=== PATIENT | female | born 1970 | race Caucasian/White ===

== ENCOUNTER 2020-01-30 08:55 | Inpatient (IN) | payer MEDICARE, MEDICAID ==
[~2020-01-30 08:55] MED LIST: Iopamidol-370 76% 500 ML 1 ML ONE
[2020-01-30] MEDS ORDERED: Morphine 4 MG/ML VIAL ONE ×2 (09:26→12:17)
[2020-01-30] MEDS ORDERED: Ondansetron PF 4 MG/2 ML Vial ONE ×2 (09:27→12:17)
[2020-01-30 09:28] LABS: #Lymphocytes 0.7 thou/uL (1.20-3.40); #Monocytes 0.7 thou/uL (0.11-0.59); #Neutrophils 11.7 thou/uL (1.40-6.50); %Basophils 0.2 % (0.0-1.0); %Eosinophils 0.2 % (0.0-10.0); %Lymphocytes 5.4 % (21.0-51.0); %Monocytes 5.6 % (0.0-10.0); %Neutrophils 88.5 % (42.0-75.0); Hemoglobin 11.6 g/dL (12.0-16.0); Mean Corpuscular HGB CONC 32.1 g/dL (32.0-36.0); Mean Corpuscular Hemoglobin 26.6 pg (27.0-31.0); Mean Corpuscular Volume 82.8 fL (78.0-98.0); Mean Platelet Volume 6.9 fL (7.4-10.4); Platelet Count 352 thou/uL (130-400); RBC Distribution Width 17.1 % (11.5-14.5); Red Blood Cell (RBC) Count 4.34 mill/uL (4.20-5.40); White Blood Cell (WBC) Count 13.2 thou/uL (4.8-10.8)
[2020-01-30 09:51] LABS: ALT (SGPT) 15 U/L (8-55); AST (SGOT) 17 U/L (5-34); Albumin 3.8 g/dL (3.5-5.0); Alkaline Phosphatase 122 U/L (40-110); Anion Gap 16 mmol/L (10-20); BUN (Urea Nitrogen) 5 mg/dL (7.0-18.7); Bilirubin, Total 0.3 mg/dL (0.2-1.2); Calc. Creatinine Clearance 0 mL/min (70-130); Calcium 9.2 mg/dL (7.8-10.44); Carbon Dioxide 23 mmol/L (22-29); Chloride 98 mmol/L (98-107); Estimated GFR-MDRD Greater than 90; Glucose 154 mg/dL (70-105); Lipase 123 U/L (8-78); Potassium 4.2 mmol/L (3.5-5.1); Protein, Total 6.8 g/dL (6.0-8.3); Sodium 133 mmol/L (136-145)
--- NOTE | 2020-01-30 10:18 | CT ---
EXAM: CT ABDOMEN AND PELVIS HISTORY: Pancreatitis, x6 months. Worsening pain. COMPARISON: 10/23/2019. Procedure: Multiple contiguous axial images were obtained and a CT of the abdomen and pelvis with IV contrast. C oronal reformats were performed. FINDINGS: Lower Chest: Interval development of a left-sided pleural effusion. There are patchy opacities in the left lower lobe suggesting possible areas of reactive change including fibrosis and scarring. Superimposed left lower lobe infiltrate cannot be entirely excluded. There are also patchy groundglas s opacities and septal thickening in the right lower lobe. Vessels: Normal caliber aorta. No periaortic fat stranding. Heart: Normal heart size. No significant pericardial fluid. Abdomen: Portal vein:Patent. Gallbladder: No calcified gallstones. Normal caliber wall. Liver: within normal limits. Pancreas: Emanating from the tail the pancreas is a complex fluid collection with septation, measurin g 5.9 x 5.4 cm with an attenuation coefficient of 15 Hounsfield units. Fluid tracks in a cephalad direction, and is posterior to the spleen. Fluid terminates underneath the left hemidiaphragm. The cr aniocaudal dimension of this fluid collection is 8.2 cm. Previously, this would collection was reported to be 12 x 10 x 8 cm. The craniocaudal dimension appears to have decreased in size. However, the anterior posterior dimension at the head and tail the pancreas appears to be more prominent. Previous noted debris fluid level is once again demonstrated. Spleen: Redemonstration of multiple linear defects involving the spleen. These defects were noted on the previous examination. There appears to be complex perisplenic fluid. Adrenals: within normal limits. Kidneys: Symmetric enhancement. No obstructive uropathy. Peritoneum: There is evidence of fluid in the left paracolic gutter and in the left upper quadrant. T here is stranding of the left upper quadrant mesentery suggesting edema. There is stranding of the mesentery along the gastric cardia/greater curvature of the stomach. There is asymmetric thickening o f the left hemidiaphragm. No evidence of extraluminal air. No evidence of a fluid collection containing air attenuation to suggest intracranial abscess. Bowel: Reactive/inflammatory changes of the stomach as mentioned above. No evidence of a small bowel obstruction. Normal ileocecal junction. Normal caliber appendix. Colon is decompressed. Diverticulosis. No evidence of diverticulitis. Mesentery and Retroperitoneum: There are enlarged gastrohepatic lymph nodes. [address] lymph nod e measures 0.8 x 1.2 cm Abdominal Wall: within normal limits. Pelvis: Reproductive Organs: Reproductive organs are unremarkable. Pelvis: No mass, lymphadenopathy, or free air. There is a small amount of free fluid in the pelvis. Bladder: within normal limits. Bones: There is a chronic compression fracture at L1. 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 Internal fixation hardware in the right hip is noted. IMPRESSION: 1. Findings compatible with evolutionary changes from pancreatitis. There is evidence of a pseudocyst adjacent to the tail of the pancreas. Pseudocyst has increased in size. There are inflammatory changes involving the left upper quadrant mesentery. There is stranding of the mesentery along with i nflammatory change along the greater curvature of the stomach. There is evidence of cortical scarring and infarcts along the spleen. There is evidence of a perisplenic subcapsular fluid collecti on which has slightly decreased in size. 2. Reactive changes involving the left and right lung base secondary to pancreatitis. 3. Consider GI consultation. Transcribed Date/Time: 01/30/2020 10:36 AM
[2020-01-30] MEDS ORDERED: Pantoprazole 40 MG VIAL ONE (12:17)
[2020-01-30] MEDS ORDERED: Ondansetron ODT 4 MG TAB PO PRN (12:34)
[2020-01-30] MEDS ORDERED: Ondansetron PF 4 MG/2 ML Vial IVP PRN (12:34)
[2020-01-30] MEDS ORDERED: HYDROcodone/Acetaminophen 7.5/325 mg Tablet PO PRN (12:34)
[2020-01-30] MEDS ORDERED: Sodium Chloride 0.9% 1,000 ML IV SCH (12:45)
[2020-01-30] MEDS ORDERED: Morphine 4 MG/ML VIAL SLOW IVP PRN (12:49)
--- NOTE | 2020-01-30 12:59 | PDOC.HHP ---
Hospitalist HPI - History of Present Illness History of Present Illness: ADMISSION DATE: 01/30/2020 TIME OF ASSESSMENT: 1215 PRIMARY CARE PHYSICIAN: Anthony CHIEF COMPLAINT: Abdominal pain and shoulder pain HPI: The patient is a 49-year-old female with past medical history significant for pancreatitis, asthma, GERD, hypothyroidism. She presents to the ER today for increased abdominal pain and she feels that her spleen is also infected. She has suffered with pancreatitis for the past 6 months and had multiple hospitalizations. She has been treating the pain at home with Tylenol #3 but this is no longer helping. She still is an everyday drinker of at least 8 beers. She describes this as a constant pain and feels that her pancreas is going to "burst out her side". Nothing is help relieve the pain at home, she also endorses nausea and vomiting. Denies contact with sick persons, diarrhea, chest pain, fever. ED COURSE: Today in the ER she had a abdomen CT completed along with lab work. She was administered Protonix 40 mg IV, morphine 8 mg total IV, Zofran 8 mg total IV, 1 L normal saline, and patient is a 79-year-old female past medical history significant for pancreatitis. She presents to the ER today 1 L lactated Ringer's. PAST MEDICAL HISTORY: Asthma, pancreatitis, GERD, hypothyroidism, elevated LFT, hepatitis Jesika active, bipolar, PTSD PAST SURGICAL HISTORY: Cholecystectomy, hernia repair SOCIAL HISTORY: Patient has lived with her parents since this past May when her . She drinks at least 8 beers a night, currently is a cigarette smoker and denies illicit drug use. FAMILY HISTORY: Positive for diabetes, CAD, hypertension. ALLERGIES: Penicillinrash CURRENT MEDICATIONS: Albuterol 2 puffs every 4 hours Tylenol 3 2 tablets every 4 hours Aspirin 81 mg Bupropion 30 mg Buspirone 10 mg 3 times a day Clonazepam 8 mg once a day Estradiol oral once a day Fluoxetine 20 mg once a day Gabapentin 300 mg 3 times a day Levothyroxine 75 mcg once a day Meloxicam 15 mg once a day Mirtazapine 7.5 mg at night Pantoprazole 40 mg twice a day Quetiapine 100 mg at night Risperdal 1 mg once a day Ropinirole 1 mg once a day Sucralfate 1 g 3 times a day Trazodone 100 mg once a day at bedtime Trulance 3 mg once a day Ambien 10 mg at night Hospitalist ROS - Review of Systems Gastrointestinal: reports: nausea, vomiting, abdominal pain Musculoskeletal: reports: neck pain, shoulder pain All other systems reviewed; all pertinent +/- noted in HPI/Subj - Exam General Appearance: awake alert, ill appearing Eye: PERRL ENT: normocephalic atraumatic Neck: supple Heart: RRR, no murmur, no gallops, no rubs, normal peripheral pulses Respiratory: CTAB, no wheezes, no rales, no ronchi, normal chest expansion Gastrointestinal: soft, non-distended, normal bowel sounds, no palpable masses, tender to palpation, voluntary guarding Musculoskeletal: normal tone, no muscle wasting Psychiatric: A&O x 3, flat affect Hospitalist Results - Labs Result Diagrams: 01/30/20 09:21 01/30/20 09:21 Lab results: WBC 13.2 thou/uL (4.8-10.8) H 01/30/20 09:21 Hgb 11.6 g/dL (12.0-16.0) L 01/30/20 09:21 Hct 35.9 % (36.0-47.0) L 01/30/20 09:21 MCV 82.8 fL (78.0-98.0) 01/30/20 09:21 Plt Count 352 thou/uL (130-400) 01/30/20 09:21 Neutrophils % 88.5 % (42.0-75.0) H 01/30/20 09:21 Sodium 133 mmol/L (136-145) L 01/30/20 09:21 Potassium 4.2 mmol/L (3.5-5.1) 01/30/20 09:21 Chloride 98 mmol/L (98-107) 01/30/20 09:21 Carbon Dioxide 23 mmol/L (22-29) 01/30/20 09:21 BUN 5 mg/dL (7.0-18.7) L 01/30/20 09:21 Creatinine 0.68 mg/dL (0.6-1.1) 01/30/20 09:21 Glucose 154 mg/dL (70-105) H 01/30/20 09:21 Calcium 9.2 mg/dL (7.8-10.44) 01/30/20 09:21 Total Bilirubin 0.3 mg/dL (0.2-1.2) 01/30/20 09:21 AST 17 U/L (5-34) 01/30/20 09:21 ALT 15 U/L (8-55) 01/30/20 09:21 Alkaline Phosphatase 122 U/L (40-110) H 01/30/20 09:21 Troponin I Less than 0.010 ng/mL (< 0.028) 01/30/20 09:21 Serum Total Protein 6.8 g/dL (6.0-8.3) 01/30/20 09:21 Albumin 3.8 g/dL (3.5-5.0) 01/30/20 09:21 Lipase 123 U/L (8-78) H 01/30/20 09:21 - EKG Interpretation EKG: SR 94bpm - Radiology Interpretation CT scan - abdomen Status: report reviewed by me Additional Comment: Impression: 1. Findings compatible with evolutionary changes from pancreatitis. There is evidence of a pseudocystadjacent to the tail of the pancreas. Pseudocyst has increased in size. There are inflammatory changes involving the left upper quadrant mesentery. There is stranding of the mesentery along with inflammatory change along the greater curvature of the stomach. There is evidence of cortical scarring and infarcts along the spleen. There is evidence of a perisplenic subcapsular fluid collection which has slightly decreased in size. 2. Reactive changes involving the left and right lung base secondary to pancreatitis. 3. Consider GI consultation. Hospitalist H&P A/P - Problem (1) Chronic pancreatitis Code(s): K86.1 - OTHER CHRONIC PANCREATITIS Status: Chronic (2) Pancreatic pseudocyst Code(s): K86.3 - PSEUDOCYST OF PANCREAS Status: Acute (3) Alcohol use Code(s): Z72.89 - OTHER PROBLEMS RELATED TO LIFESTYLE Status: Chronic (4) Hyponatremia Code(s): E87.1 - HYPO-OSMOLALITY AND HYPONATREMIA Status: Acute (5) Anemia Code(s): D64.9 - ANEMIA, UNSPECIFIED Status: Acute (6) Back pain Code(s): M54.9 - DORSALGIA, UNSPECIFIED Status: Chronic (7) Bipolar disorder Code(s): F31.9 - BIPOLAR DISORDER, UNSPECIFIED Status: Chronic (8) PTSD (post-traumatic stress disorder) Code(s): F43.10 - POST-TRAUMATIC STRESS DISORDER, UNSPECIFIED Status: Chronic - Plan Plan: #Chronic pancreatitis with large pseudocyst Continue with IV fluid, aggressive hydration GI consultalready called in ER Pain management #Splenic infarctions IV fluids Defer to GI for recommendations #Anemia Monitor H&H Looked at old records from previous hospitalization, hemoglobin ranged from 8-13 We will monitor for signs of bleeding #Hyponatremia Continuous IV fluids Recheck labs in a.m. #Back pain Pain management while here in the hospital Outpatient follow-up with neurosurgery as scheduled #Daily alcohol use ASE protocol in place Monitor for signs of withdrawal #Bipolar and PTSD Restart home medications once reconciled Surrogate decision-maker is her mother CODE STATUS: Full Patient has been discussed with Dr. Stout
[2020-01-30 13:31] LABS: Magnesium 1.8 mg/dL (1.6-2.6)
[2020-01-30 14:01] VITALS: BMI 23.9
[2020-01-30] MEDS: Sodium Chloride 0.9% 1,000 ML IV SCH ×2 (15:39→20:08)
[2020-01-30] MEDS: Multivitamins, Adult 10 ML, Folic Acid 1 MG, Thiamine HCl 100 MG in Dextrose 5 %-0.45 %... IV SCH (16:06)
[2020-01-30] MEDS: HYDROcodone/Acetaminophen 7.5/325 mg Tablet PO PRN ×2 (16:11→21:57)
--- NOTE | 2020-01-30 17:36 | CON ---
DATE OF CONSULTATION: 01/30/2020 REQUESTING PROVIDER: Jackie Lane NP. REASON FOR CONSULTATION: Pancreatitis with pseudocyst. HISTORY OF PRESENT ILLNESS: Jade Odell is a 49-year-old woman, a patient of my GI colleague, Dr. Lee Adams. She has a history significant for asthma, bipolar disorder, and hepatitis C. Back around 04/2019 in [place], she had her 1st episode of acute pancreatitis, this was evidently severe. She also had a gastric ulcer demonstrated on EGD at that time. She says that the pancreatitis was thought to be gallstone related and she underwent cholecystectomy. She was noted to have a pseudocyst at that time, that measured only 4 cm. She had resolution of those symptoms and established care with Dr. Adams here this summer. He performed EGD and colonoscopy on 10/10/2019. The EGD demonstrated complete healing of her ulcer, but showed a lot of extrinsic compression in the proximal stomach. The colonoscopy was a normal exam. CT imaging in October demonstrated that her pancreatic tail pseudocyst had enlarged with measurements of 8 x 10 x 12 cm given. Regardless, she was really not having any symptoms from this. Unfortunately, she does drink quite a bit of alcohol despite having been advised to stop by providers in the past. At this point, she says she is drinking at least 30 beers over the course of a week. To other provider, she has reported at least 8 beers per day. She was doing well until 4 days ago when she had the fairly acute onset of pain involving the entire upper abdomen and radiating to the left side of the back down into the left lower quadrant and actually up into the left shoulder and down the left arm. This has been constant, but exacerbated by any oral intake. She has associated nausea and nonbloody emesis. Her bowel movements have continued to be normal. She has been taking Tylenol No. 3 two tablets up to every 4 hours at home, but it was not enough for the level of pain. She presented here today and has been admitted for further evaluation and treatment. Labs demonstrate a mild leukocytosis with WBC 13.2, hemoglobin 11.6, alkaline phosphatase 122, but otherwise normal LFTs. Lipase only mildly elevated to 123, but a CT of the abdomen and pelvis shows changes consistent with recurrent acute pancreatitis. There is a left pleural effusion. She has a lot of left upper quadrant and perigastric mesenteric edema, some chronic splenic infarcts. No evidence of abscess. Her pancreatic tail fluid collection measures 8.2 x 5.9 x 5.4 cm, which is an increase in size in the anterior/posterior dimension, with debris. She is currently resting comfortably, responding well to morphine. IV fluids have been ordered at 150 mL/h, but are not currently running. REVIEW OF SYSTEMS: Full review of systems including constitutional; head, eyes, ears, nose, and throat; GI; ; cardiovascular; respiratory; musculoskeletal; neurologic systems is negative except as noted in the HPI. PAST MEDICAL HISTORY: 1. Hernia repair. 2. Cholecystectomy in spring. 3. Pancreatitis in 04/2019. 4. Gastric ulcer in 04/2019, resolved as of most recent EGD in 09/2019. 5. Asthma. 6. Hypothyroidism. 7. Hepatitis C. 8. PTSD. 9. Bipolar disorder. 10. Alcohol abuse. 11. Tobacco abuse, ongoing. ALLERGIES: PENICILLIN. OUTPATIENT MEDICATIONS: 1. Aspirin 81 mg daily. 2. Albuterol two puffs every 4 hours. 3. Tylenol No. 3 two tablets every 4 hours. 4. Bupropion. 5. Buspirone. 6. Clonazepam 8 mg daily. 7. Estradiol. 8. Fluoxetine. 9. Gabapentin 300 mg 3 times daily. 10. Levothyroxine. 11. Meloxicam 15 mg daily. 12. Mirtazapine. 13. Pantoprazole 40 mg twice daily. 14. Quetiapine. 15. Risperdal. 16. Ropinirole. 17. Sucralfate 1 g 3 times daily. 18. Trazodone 100 mg at bedtime. 19. Trulance 3 mg daily. 20. Ambien 10 mg at night. INPATIENT MEDICATIONS: 1. Morphine 4 mg q.4 h. IV p.r.n. 2. Normal saline 150 mL/h. 3. Zofran p.r.n. FAMILY HISTORY: Noncontributory. SOCIAL HISTORY: She does smoke. She has heavy daily alcohol use, having anywhere from 6 to 8 or more beers per day on average. No drug use. PHYSICAL EXAMINATION: VITAL SIGNS: Temperature 97.6, pulse 94, blood pressure 128/72, and 96% oxygen saturation on 2 L nasal cannula. GENERAL: A 49-year-old woman, lying in bed comfortably, somnolent, but easily arousable and able to answer detailed questions, in no acute distress. SKIN: No jaundice. No rash visible or palpable. EYES: No scleral icterus. Extraocular movements intact. ENT: Mucous membranes moist. No oral lesions. LYMPHATICS: No submandibular or supraclavicular lymphadenopathy. THYROID: Nontender to palpation. HEART: Regular rate and rhythm. LUNGS: Bibasilar crackles, but no wheezing. No respiratory distress. ABDOMEN: Nondistended. Bowel sounds are hypoactive, but present. Soft, tender to palpation throughout the upper abdomen, but no guarding or rebound tenderness. EXTREMITIES: No peripheral edema. VESSELS: Radial pulses 2+ bilaterally. NEUROLOGIC: Cranial nerves 2 through 12 intact bilaterally. No focal deficits. LABORATORY STUDIES: WBC 13.2, hemoglobin 11.6, and platelets 352. Sodium 133, potassium 4.2, BUN 5, creatinine 0.68, glucose 154. Troponin negative. Lipase of 123, total bilirubin 0.3, alkaline phosphatase 122, AST 17, ALT 15, and albumin 3.8. COVID PCR is pending. Urinalysis is pending. IMAGING STUDIES: CT of the abdomen and pelvis demonstrates patchy bibasilar lower lung opacities, left pleural effusion. There are chronic splenic infarcts and chronic subcapsular splenic fluid collection, which has decreased in size. There is an 8.2 x 5.9 x 5.4 cm complex fluid collection, which is septated at the pancreatic tail, increased in size in the anterior/posterior dimension since last exam, with layering debris. There is left upper quadrant and perigastric mesenteric edema, but no evidence of abscess. ASSESSMENT AND PLAN: 1. [id number] pancreatitis. Note, her lipase is elevated only to 123, but she has characteristic active inflammatory changes on the CT scan. This pseudocyst is more chronic and the symptoms are more acute over the past 4 to 5 days, so my impression is that the symptoms represent acute recurrent pancreatitis. Lab parameters are favorable including hematocrit, BUN, and creatinine. Recommend continuing with n.p.o. status and pain control for now. Agree with IV fluids at 150 mL/h for at least the next day, this is ordered, but not currently running. 2. Alcohol abuse, ongoing. I had a long discussion with the patient that she really needs to completely stop drinking all alcohol, as this puts her at risk for recurrent episodes of pancreatitis and worsening complications such as enlargement of the pseudocyst. Monitor for alcohol withdrawal. 3. Pancreatic pseudocyst at the pancreatic tail, complex and septated. This is a possible contributor to her pain, though I suspect most of the acute pain is secondary to the pancreatitis itself. It is certainly not significantly decreased in size over the past 3 months, has certainly grown since 1st visualized in April. Evidently, she had endoscopic ultrasound in [place] on initial presentation, which showed fluid collection was only 4 cm. The patient may eventually need referral for repeat endoscopic ultrasound with the drainage of the pseudocyst once she is over this acute episode. Thank you for the consultation. GI can follow along. Please call anytime with questions or concerns. Job ID: [id number]
[2020-01-30 22:38] LABS: Bacteria/HPF None Seen HPF (None Seen); Bilirubin Negative (Negative); Blood, Urine Negative (Negative); Clarity Clear (Clear); Glucose, Urine (Dipstick) Normal (Negative); Ketone, Urine Negative (Negative); Leukocyte Negative Leu/uL (Negative); Nitrite Negative (Negative); Protein, Urine (Dipstick) Negative (Neg-Trace); RBC/HPF 0-3 HPF (0-3); Specific Gravity, Urine 1.037 (1.002-1.036); Squamous Epithelial 0-3 HPF (0-3); Urobilinogen Normal mg/dL (Less than 2); WBC/HPF 0-3 HPF (0-3)
[2020-01-30] MEDS ORDERED: Albuterol 200 PUFF (6.7GM INHALER) INH PRN (23:08)
[2020-01-31 00:50] LABS: SARS-CoV-2 MS2 Positive; SARS-CoV-2 N Gene Negative; SARS-CoV-2 S Gene Negative; SARS-CoV-2 by NAA Not Detected (NotDetected); SARS-CoV-2 orf1ab Negative
[2020-01-31] MEDS: HYDROcodone/Acetaminophen 7.5/325 mg Tablet PO PRN ×3 (02:42→20:30)
[2020-01-31] MEDS: Sodium Chloride 0.9% 1,000 ML IV SCH ×3 (03:44→15:50)
[2020-01-31] MEDS: Levothyroxine Sodium 75 MCG TAB PO SCH (05:33)
[2020-01-31 05:57] LABS: #Eosinphils 0.1 thou/uL (0.0-0.7); #Lymphocytes 1.1 thou/uL (1.20-3.40); #Monocytes 1.4 thou/uL (0.11-0.59); #Neutrophils 12.1 thou/uL (1.40-6.50); %Basophils 0.1 % (0.0-1.0); %Eosinophils 0.8 % (0.0-10.0); %Lymphocytes 7.2 % (21.0-51.0); %Monocytes 9.6 % (0.0-10.0); %Neutrophils 82.3 % (42.0-75.0); Hemoglobin 9.4 g/dL (12.0-16.0); Mean Corpuscular HGB CONC 31.7 g/dL (32.0-36.0); Mean Corpuscular Hemoglobin 26.9 pg (27.0-31.0); Mean Corpuscular Volume 84.6 fL (78.0-98.0); Mean Platelet Volume 6.9 fL (7.4-10.4); Platelet Count 356 thou/uL (130-400); RBC Distribution Width 16.7 % (11.5-14.5); Red Blood Cell (RBC) Count 3.49 mill/uL (4.20-5.40); White Blood Cell (WBC) Count 14.7 thou/uL (4.8-10.8)
[2020-01-31 06:23] LABS: Anion Gap 10 mmol/L (10-20); BUN (Urea Nitrogen) 5 mg/dL (7.0-18.7); Calc. Creatinine Clearance 107 mL/min (70-130); Calcium 7.8 mg/dL (7.8-10.44); Carbon Dioxide 24 mmol/L (22-29); Chloride 102 mmol/L (98-107); Cholesterol 81 mg/dl (< 200 Desired); Estimated GFR-MDRD Greater than 90; Glucose 94 mg/dL (70-105); HDL Cholesterol 40 mg/dL (>60 Neg Risk); LDL Cholesterol, Calculated 31 mg/dL; Potassium 3.8 mmol/L (3.5-5.1); Sodium 132 mmol/L (136-145); Triglycerides 49 mg/dL (Less than 150)
--- NOTE | 2020-01-31 13:30 | PDOC.HOSPP ---
- Subjective Encounter Date: 01/31/20 Encounter Time: 09:30 Subjective: c/o abd pain and sob spo2 is >96% on room air now - Objective Vital Signs & Weight: Vital Signs (12 hours) Temp Pulse Resp BP Pulse Ox 01/31/20 08:00 98 01/31/20 07:10 98.8 F 100 16 94/65 98 01/31/20 03:56 98.8 F 105 H 18 115/81 97 Weight Weight 131 lb Result Diagrams: 01/31/20 05:26 01/31/20 05:26 Hospitalist ROS - Medication Medications: Active Medications Generic Name Dose Route Start Last Admin Trade Name Freq PRN Reason Stop Dose Admin Hydrocodone Bitart/Acetaminophen 2 tab 01/30/20 12:34 01/31/20 10:34 Hydrocodone/Acetaminophen 7.5/325 Mg Tablet PO 2 tab Q4H PRN Administration Severe Pain (7-10) Multivitamins 10 ml/ Folic 1,011.2 mls @ 75 mls/hr 01/30/20 15:00 01/30/20 16:06 Acid 1 mg/ Thiamine HCl 100 mg IV 1,011.2 mls / Dextrose/Sodium Chloride Q24HR CHANDANA Administration Sodium Chloride 1,000 mls @ 150 mls/hr 01/30/20 13:21 01/31/20 08:32 Normal Saline 0.9% IV 1,000 mls .[id number] CHANDANA Administration Levothyroxine Sodium 75 mcg 01/31/20 06:00 01/31/20 05:33 Levothyroxine Sodium 75 Mcg Tab PO 75 mcg 0600 CHANDANA Administration Morphine Sulfate 4 mg 01/30/20 12:49 01/30/20 20:11 Morphine 4 Mg/Ml Vial SLOW IVP 4 mg Q4H PRN Administration Severe Pain (7-10) - Exam General Appearance: awake alert Eye: PERRL, anicteric sclera ENT: no oropharyngeal lesions, moist mucosa Neck: supple, no JVD Heart: RRR, no murmur Respiratory: no wheezes, no rales, rhonchi Gastrointestinal: soft, non-distended, normal bowel sounds, no guarding, no rigidity, tender to palpation Extremities: no cyanosis, no edema Neurological: cranial nerve grossly intact, no focal deficits Psychiatric: A&O x 3 Hosp A/P (1) Acute on chronic pancreatitis Code(s): K85.90 - ACUTE PANCREATITIS WITHOUT NECROSIS OR INFECTION, UNSP; K86.1 - OTHER CHRONIC PANCREATITIS Status: Acute (2) Anemia Code(s): D64.9 - ANEMIA, UNSPECIFIED Status: Chronic Qualifiers: Anemia type: unspecified type Qualified Code(s): D64.9 - Anemia, unspecified (3) Hyponatremia Code(s): E87.1 - HYPO-OSMOLALITY AND HYPONATREMIA Status: Acute (4) Pancreatic pseudocyst Code(s): K86.3 - PSEUDOCYST OF PANCREAS Status: Chronic (5) Alcohol use Code(s): Z72.89 - OTHER PROBLEMS RELATED TO LIFESTYLE Status: Chronic (6) Back pain Code(s): M54.9 - DORSALGIA, UNSPECIFIED Status: Chronic Qualifiers: Back pain location: low back pain Chronicity: chronic Back pain laterality: bilateral Sciatica presence: without sciatica Qualified Code(s): M54.5 - Low back pain; G89.29 - Other chronic pain (7) Bipolar disorder Code(s): F31.9 - BIPOLAR DISORDER, UNSPECIFIED Status: Chronic Qualifiers: Active/Remission status: remission status unspecified Qualified Code(s): F31.9 - Bipolar disorder, unspecified (8) Chronic pancreatitis Code(s): K86.1 - OTHER CHRONIC PANCREATITIS Status: Chronic (9) PTSD (post-traumatic stress disorder) Code(s): F43.10 - POST-TRAUMATIC STRESS DISORDER, UNSPECIFIED Status: Chronic - Plan is on aggressive iv fluid hydration, morphine prn home meds for mood disorder, staff to confirm home meds again with patient and her pharmacy has 8x6x5 cms pseudocyst on CT lipase 123, trig 49, prior cholecystectomy ongoing alc usage h/o Hep C, not sure if she got treated wbc 14k, h/h 12/10 watch for resp depression with morphine and her home meds (may hold trazadone if needed) hemostable
[2020-01-31] MEDS ORDERED: FLU VACC QS2020-21(6MOS UP)/PF 60 MCG/0.5 ML SYRINGE IM ONE (14:30)
[2020-01-31] MEDS: Multivitamins, Adult 10 ML, Folic Acid 1 MG, Thiamine HCl 100 MG in Dextrose 5 %-0.45 %... IV SCH (14:33)
--- NOTE | 2020-01-31 16:04 | PRG ---
DATE OF SERVICE: 01/31/2020 SUBJECTIVE: Ms. Odell has had improvement in her abdominal pain. She has had some mild shortness of breath. OBJECTIVE: VITAL SIGNS: Temperature 99.7, pulse 113, blood pressure 111/73. GENERAL: She is in no acute distress. Alert and oriented x3. EYES: No scleral icterus. LUNGS: Clear to auscultation bilaterally. HEART: Regular rate and rhythm without murmur. ABDOMEN: Soft. Mild tenderness in the epigastric region without guarding. Bowel sounds are present. EXTREMITIES: No lower extremity edema. LABORATORY DATA: Creatinine 0.59. Lipase is 123 yesterday. White blood cell count 14.7; hemoglobin is 9.4, down from 11.6 after rehydration; platelets 356. IMPRESSION: 1. Acute on chronic alcoholic pancreatitis. She started drinking again prior to admission and is encouraged to completely maintain abstinence after this. 2. Pancreatic pseudocyst. This is slowly enlarged over the last few months, but it appears to be more of a chronic issue as her acute pain is likely secondary to acute flare of the pancreatitis. RECOMMENDATIONS: 1. Her pain is doing better. We can try to advance her diet today. If she tolerates that well, then she can advance to a low-fat diet. 2. Alcohol abstinence. Job ID: [id number]
[2020-02-01] MEDS: HYDROcodone/Acetaminophen 7.5/325 mg Tablet PO PRN ×5 (00:25→20:06)
[2020-02-01] MEDS: Sodium Chloride 0.9% 1,000 ML IV SCH ×5 (00:27→16:33)
[2020-02-01] MEDS: Levothyroxine Sodium 75 MCG TAB PO SCH (05:19)
[2020-02-01 07:51] LABS: Hemoglobin 7.9 g/dL (12.0-16.0); Mean Corpuscular HGB CONC 29.9 g/dL (32.0-36.0); Mean Corpuscular Hemoglobin 25.2 pg (27.0-31.0); Mean Corpuscular Volume 84.2 fL (78.0-98.0); Mean Platelet Volume 6.6 fL (7.4-10.4); Platelet Count 421 thou/uL (130-400); RBC Distribution Width 16.4 % (11.5-14.5); Red Blood Cell (RBC) Count 3.13 mill/uL (4.20-5.40); White Blood Cell (WBC) Count 12.6 thou/uL (4.8-10.8)
[2020-02-01 07:52] LABS: #Eosinphils 0.1 thou/uL (0.0-0.7); #Lymphocytes 1.3 thou/uL (1.20-3.40); #Monocytes 1.1 thou/uL (0.11-0.59); #Neutrophils 10.1 thou/uL (1.40-6.50); %Basophils 0.1 % (0.0-1.0); %Eosinophils 0.9 % (0.0-10.0)
[2020-02-01 08:02] LABS: Anion Gap 11 mmol/L (10-20); BUN (Urea Nitrogen) 4 mg/dL (7.0-18.7); Calc. Creatinine Clearance 113 mL/min (70-130); Calcium 7.5 mg/dL (7.8-10.44); Carbon Dioxide 21 mmol/L (22-29); Chloride 106 mmol/L (98-107); Estimated GFR-MDRD Greater than 90; Glucose 87 mg/dL (70-105); Potassium 3.4 mmol/L (3.5-5.1); Sodium 135 mmol/L (136-145)
[2020-02-01 08:25] LABS: MDiff Complete? YES; Platelet Morphology Comment Appears Increased; Polychromasia SLIGHT = 2-3 cells (100X) (0-2/hpf)
[2020-02-01] MEDS: risperiDONE 1 MG TAB PO SCH (09:00)
[2020-02-01] MEDS: Bupropion 150 MG XL TAB PO SCH (09:00)
[2020-02-01] MEDS: FLUoxetine HCl 20 MG CAP PO SCH (09:00)
[2020-02-01] MEDS: Folic Acid 1 MG TAB PO SCH (09:00)
--- NOTE | 2020-02-01 14:12 | PDOC.HOSPP ---
- Subjective Encounter Date: 02/01/20 Encounter Time: 08:45 Subjective: still c/o abd pain but its better now is awaiting her liq breakfast tray no nausea - Objective Vital Signs & Weight: Vital Signs (12 hours) Temp Pulse Resp BP Pulse Ox 02/01/20 13:04 91 18 97 02/01/20 11:00 98.2 F 96 16 90/59 L 94 L 02/01/20 07:08 98.2 F 93 16 94/66 94 L 02/01/20 06:57 92 L 02/01/20 06:55 98 16 93 L 02/01/20 04:10 103 H 18 94/63 92 L Weight Weight 131 lb Result Diagrams: 02/01/20 07:22 02/01/20 07:22 Hospitalist ROS - Medication Medications: Active Medications Generic Name Dose Route Start Last Admin Trade Name Freq PRN Reason Stop Dose Admin Hydrocodone Bitart/Acetaminophen 2 tab 01/30/20 12:34 02/01/20 09:00 Hydrocodone/Acetaminophen 7.5/325 Mg Tablet PO 2 tab Q4H PRN Administration Severe Pain (7-10) Albuterol/Ipratropium 3 ml 01/31/20 19:00 02/01/20 13:04 Ipratropium/Albuterol Sulfate 3 Ml Neb NEB 3 ml [id number] CHANDANA Administration Bupropion HCl 300 mg 02/01/20 09:00 02/01/20 09:00 Bupropion 150 Mg Xl Tab PO 300 mg DAILY CHANDANA Administration Fluoxetine HCl 20 mg 02/01/20 09:00 02/01/20 09:00 Fluoxetine Hcl 20 Mg Cap PO 20 mg DAILY CHANDANA Administration Folic Acid 1 mg 02/01/20 09:00 02/01/20 09:00 Folic Acid 1 Mg Tab PO 1 mg DAILY CHANDANA Administration Multivitamins 10 ml/ Folic 1,011.2 mls @ 75 mls/hr 01/30/20 15:00 01/31/20 14:33 Acid 1 mg/ Thiamine HCl 100 mg IV 1,011.2 mls / Dextrose/Sodium Chloride Q24HR CHANDANA Administration Sodium Chloride 1,000 mls @ 150 mls/hr 01/30/20 13:21 02/01/20 11:36 Normal Saline 0.9% IV Not Given .[id number] CHANDANA Levothyroxine Sodium 75 mcg 01/31/20 06:00 02/01/20 05:19 Levothyroxine Sodium 75 Mcg Tab PO 75 mcg 0600 CHANDANA Administration Morphine Sulfate 4 mg 01/30/20 12:49 01/30/20 20:11 Morphine 4 Mg/Ml Vial SLOW IVP 4 mg Q4H PRN Administration Severe Pain (7-10) Pantoprazole Sodium 40 mg 01/31/20 21:00 02/01/20 09:00 Pantoprazole 40 Mg Tab PO 40 mg BID CHANDANA Administration Quetiapine Fumarate 200 mg 01/31/20 21:00 01/31/20 20:30 Quetiapine Fumarate 200 Mg Tab PO 200 mg HS CHANDANA Administration Risperidone 1 mg 02/01/20 09:00 02/01/20 09:00 Risperidone 1 Mg Tab PO 1 mg DAILY CHANDANA Administration - Exam General Appearance: awake alert Eye: PERRL, anicteric sclera ENT: no oropharyngeal lesions, moist mucosa Neck: supple, no JVD Heart: RRR, no murmur Respiratory: no wheezes, no rales Gastrointestinal: soft, non-distended, normal bowel sounds, no guarding, no rigidity Extremities: no cyanosis, no edema Neurological: cranial nerve grossly intact, no focal deficits Psychiatric: A&O x 3 Hosp A/P (1) Acute on chronic pancreatitis Code(s): K85.90 - ACUTE PANCREATITIS WITHOUT NECROSIS OR INFECTION, UNSP; K86.1 - OTHER CHRONIC PANCREATITIS Status: Acute (2) Anemia Code(s): D64.9 - ANEMIA, UNSPECIFIED Status: Chronic Qualifiers: Anemia type: unspecified type Qualified Code(s): D64.9 - Anemia, unspecified (3) Hyponatremia Code(s): E87.1 - HYPO-OSMOLALITY AND HYPONATREMIA Status: Acute (4) Pancreatic pseudocyst Code(s): K86.3 - PSEUDOCYST OF PANCREAS Status: Chronic (5) Alcohol use Code(s): Z72.89 - OTHER PROBLEMS RELATED TO LIFESTYLE Status: Chronic (6) Back pain Code(s): M54.9 - DORSALGIA, UNSPECIFIED Status: Chronic Qualifiers: Back pain location: low back pain Chronicity: chronic Back pain laterality: bilateral Sciatica presence: without sciatica Qualified Code(s): M54.5 - Low back pain; G89.29 - Other chronic pain (7) Bipolar disorder Code(s): F31.9 - BIPOLAR DISORDER, UNSPECIFIED Status: Chronic Qualifiers: Active/Remission status: remission status unspecified Qualified Code(s): F31.9 - Bipolar disorder, unspecified (8) Chronic pancreatitis Code(s): K86.1 - OTHER CHRONIC PANCREATITIS Status: Chronic (9) PTSD (post-traumatic stress disorder) Code(s): F43.10 - POST-TRAUMATIC STRESS DISORDER, UNSPECIFIED Status: Chronic - Plan is on aggressive iv fluid hydration, morphine prn, liq diet, to advance to solid fat free diet in am if stable home meds for mood disorder, staff to confirm home meds again with patient and her pharmacy has 8x6x5 cms pseudocyst on CT lipase 123, trig 49, prior cholecystectomy ongoing alc usage h/o Hep C, not sure if she got treated low h/h due to dilution from hydration, no bleed watch for resp depression with morphine and her home meds (may hold trazadone if needed) hemostable to ambulate in hallway as tolerated
[2020-02-01] MEDS: Multivitamins, Adult 10 ML, Folic Acid 1 MG, Thiamine HCl 100 MG in Dextrose 5 %-0.45 %... IV SCH (15:33)
--- NOTE | 2020-02-01 16:09 | PRG ---
DATE OF SERVICE: 02/01/2020 SUBJECTIVE: Ms. Odell still has abdominal pain, but it has been well controlled with the pain medicine. She has had no nausea or vomiting today. She has had no bowel movement today. OBJECTIVE: VITAL SIGNS: Temperature 98.2, pulse 91, blood pressure 90/59. GENERAL: She is in no acute distress. Alert and oriented x3. LUNGS: Clear to auscultation bilaterally. HEART: Regular rate and rhythm without murmur. ABDOMEN: Soft, mild tenderness in the epigastric region without guarding. Bowel sounds are present. EXTREMITIES: No lower extremity edema. RECTAL: Reveals no stool in the rectal vault. LABORATORY DATA: White blood cell count 12.6, hemoglobin 7.9, platelets 421. INR 0.56. Bilirubin 0.3, AST 17, ALT 15, alkaline phosphatase 122. IMPRESSION: 1. Acute recurrent alcohol-induced pancreatitis. 2. History of pancreatic pseudocyst, which has enlarged but does not appear to be the primary source for her current symptoms. The current symptoms appear to be due to the acute flare of pancreatitis. 3. Anemia. Her hemoglobin has dropped from 11.6 on the 18th to 9.4 yesterday to 7.9 today. She has had no overt GI bleeding and her rectal exam is clear today. The possibility of retroperitoneal hemorrhage related to her pancreatitis is considered. She did have a CT scan, however, on presentation that did not show signs of acute hemorrhage. She does have a complicated pseudocyst. RECOMMENDATIONS: 1. Recheck her hemoglobin tomorrow morning. 2. If her hemoglobin drops again tomorrow, then check a CT scan of the abdomen and pelvis without contrast to assess for retroperitoneal or pancreatic hemorrhage. 3. She is tolerating a clear liquid diet well today. If her hemoglobin is stable tomorrow and her pain is improving, then she could likely advance her diet to try a low fat diet tomorrow. 4. Dr. Canales will cover the service tomorrow. Job ID: [id number]
[2020-02-02] MEDS: HYDROcodone/Acetaminophen 7.5/325 mg Tablet PO PRN ×5 (02:10→22:44)
[2020-02-02] MEDS: Sodium Chloride 0.9% 1,000 ML IV SCH ×3 (02:12→12:09)
[2020-02-02] MEDS: Levothyroxine Sodium 75 MCG TAB PO SCH (06:40)
[2020-02-02] MEDS: Bupropion 150 MG XL TAB PO SCH (08:02)
[2020-02-02] MEDS: FLUoxetine HCl 20 MG CAP PO SCH (08:02)
[2020-02-02] MEDS: Diabetic Tussin 200 MG/10 ML UDCUP PO PRN (08:02)
[2020-02-02] MEDS: Folic Acid 1 MG TAB PO SCH (08:03)
[2020-02-02] MEDS: risperiDONE 1 MG TAB PO SCH (08:03)
[2020-02-02] MEDS ORDERED: Zolpidem Tartrate 5 MG TAB PO PRN (08:35)
[2020-02-02] MEDS ORDERED: Calcium Carbonate 500 MG ChewTAB PO PRN (08:35)
[2020-02-02] MEDS ORDERED: Loratadine 10 MG TAB PO PRN (08:35)
[2020-02-02] MEDS ORDERED: Sodium Chloride 0.65% Nasal 44 ML BOT EA NARE PRN (08:35)
[2020-02-02] MEDS ORDERED: Bisacodyl 10 MG SUPP PR PRN (08:35)
[2020-02-02] MEDS ORDERED: Senokot S 8.6-50 MG TAB PO PRN (08:35)
[2020-02-02] MEDS ORDERED: hydrALAZINE 20 MG/ML VIAL SLOW IVP PRN (08:35)
[2020-02-02] MEDS ORDERED: Cepastat Lozenges 1 LOZ PO PRN (08:35)
[2020-02-02] MEDS ORDERED: Loperamide HCl 2 MG CAP PO PRN (08:35)
[2020-02-02 11:06] LABS: #Eosinphils 0.1 thou/uL (0.0-0.7); #Lymphocytes 0.8 thou/uL (1.20-3.40); #Monocytes 0.5 thou/uL (0.11-0.59); #Neutrophils 7.4 thou/uL (1.40-6.50); %Basophils 0.3 % (0.0-1.0); %Eosinophils 1.4 % (0.0-10.0); %Lymphocytes 8.7 % (21.0-51.0); %Monocytes 5.9 % (0.0-10.0); %Neutrophils 83.7 % (42.0-75.0); Hemoglobin 8.6 g/dL (12.0-16.0); Mean Corpuscular HGB CONC 30.2 g/dL (32.0-36.0); Mean Corpuscular Hemoglobin 25.7 pg (27.0-31.0); Mean Corpuscular Volume 85.3 fL (78.0-98.0); Mean Platelet Volume 6.6 fL (7.4-10.4); Platelet Count 523 thou/uL (130-400); RBC Distribution Width 16.4 % (11.5-14.5); Red Blood Cell (RBC) Count 3.33 mill/uL (4.20-5.40); White Blood Cell (WBC) Count 8.9 thou/uL (4.8-10.8)
[2020-02-02 11:26] LABS: Anion Gap 13 mmol/L (10-20); BUN (Urea Nitrogen) Less than 4 mg/dL (7.0-18.7); Calc. Creatinine Clearance 109 mL/min (70-130); Calcium 8.2 mg/dL (7.8-10.44); Carbon Dioxide 22 mmol/L (22-29); Chloride 104 mmol/L (98-107); Estimated GFR-MDRD Greater than 90; Glucose 91 mg/dL (70-105); Potassium 3.3 mmol/L (3.5-5.1); Sodium 136 mmol/L (136-145)
--- NOTE | 2020-02-02 11:51 | PDOC.HOSPP ---
- Subjective Encounter Date: 02/02/20 Encounter Time: 09:15 Subjective: Patient seen and examined. Patient was sleepy this morning, but following while talking, no overnight events - Objective Vital Signs & Weight: Vital Signs (12 hours) Temp Pulse Resp BP BP Pulse Ox 02/02/20 11:18 97.9 F 103 H 16 103/69 93 L 02/02/20 07:31 97.5 F L 105 H 15 103/68 96 02/02/20 07:09 90 20 89 L 02/02/20 04:00 97.9 F 101 H 20 98/68 99 02/02/20 02:23 110 H 22 H 94 L 02/02/20 00:00 97.9 F 118 H 20 102/67 92 L Weight Weight 131 lb I&O: 02/01/20 02/02/20 02/03/20 06:59 06:59 06:59 Intake Total 1600 Balance 1600 Result Diagrams: 02/02/20 10:33 02/02/20 10:33 Radiology Reviewed by me: Yes Hospitalist ROS - Review of Systems Constitutional: denies: fever, chills, sweats, weakness, malaise, other ENT: denies: ear pain, ear discharge, nose pain, nose discharge, nose congestion, mouth pain, mouth swelling, throat pain, throat swelling, other Respiratory: denies: cough, dry, shortness of breath, hemoptysis, SOB with excertion, pleuritic pain, sputum, wheezing, other Cardiovascular: denies: chest pain, palpitations, orthopnea, paroxysmal noc. dyspnea, edema, light headedness, other Gastrointestinal: reports: abdominal pain. denies: nausea, vomiting, diarrhea, constipation, melena, hematochezia, other Genitourinary: denies: dysuria, frequency, incontinence, hematuria, retention, other Musculoskeletal: denies: neck pain, shoulder pain, arm pain, back pain, hand pain, leg pain, foot pain, other Skin: denies: rash, lesions, gold, bruising, other - Medication Medications: Active Medications Generic Name Dose Route Start Last Admin Trade Name Freq PRN Reason Stop Dose Admin Hydrocodone Bitart/Acetaminophen 2 tab 01/30/20 12:34 02/02/20 08:03 Hydrocodone/Acetaminophen 7.5/325 Mg Tablet PO 2 tab Q4H PRN Administration Severe Pain (7-10) Albuterol/Ipratropium 3 ml 01/31/20 19:00 02/02/20 07:09 Ipratropium/Albuterol Sulfate 3 Ml Neb NEB 3 ml [id number] CHANDANA Administration Bupropion HCl 300 mg 02/01/20 09:00 02/02/20 08:02 Bupropion 150 Mg Xl Tab PO 300 mg DAILY CHANDANA Administration Fluoxetine HCl 20 mg 02/01/20 09:00 02/02/20 08:02 Fluoxetine Hcl 20 Mg Cap PO 20 mg DAILY CHANDANA Administration Folic Acid 1 mg 02/01/20 09:00 02/02/20 08:03 Folic Acid 1 Mg Tab PO 1 mg DAILY CHANDANA Administration Guaifenesin 300 mg 02/01/20 19:03 02/02/20 08:02 Diabetic Tussin 200 Mg/10 Ml Udcup PO 300 mg Q6H PRN Administration .COUGH Sodium Chloride 1,000 mls @ 150 mls/hr 01/30/20 13:21 02/02/20 08:04 Normal Saline 0.9% IV Not Given .[id number] CHANDANA Levothyroxine Sodium 75 mcg 01/31/20 06:00 02/02/20 06:40 Levothyroxine Sodium 75 Mcg Tab PO 75 mcg 0600 CHANDANA Administration Morphine Sulfate 4 mg 01/30/20 12:49 01/30/20 20:11 Morphine 4 Mg/Ml Vial SLOW IVP 4 mg Q4H PRN Administration Severe Pain (7-10) Pantoprazole Sodium 40 mg 01/31/20 21:00 02/02/20 08:04 Pantoprazole 40 Mg Tab PO 40 mg BID CHANDANA Administration Quetiapine Fumarate 200 mg 01/31/20 21:00 02/01/20 22:07 Quetiapine Fumarate 200 Mg Tab PO 200 mg HS CHANDANA Administration Risperidone 1 mg 02/01/20 09:00 02/02/20 08:03 Risperidone 1 Mg Tab PO 1 mg DAILY CHANDANA Administration - Exam General Appearance: NAD, awake alert Eye: PERRL, anicteric sclera ENT: normocephalic atraumatic, no oropharyngeal lesions Neck: supple, symmetric, no JVD, no thyromegaly Heart: RRR, no murmur, no gallops, no rubs Respiratory: no wheezes, no rales, no ronchi Gastrointestinal: soft, non-tender, non-distended, normal bowel sounds Gastrointestinal - other findings: No peritoneal sign Extremities: no clubbing, no edema Skin: normal turgor, no lesions Neurological: no focal deficits Musculoskeletal: normal tone, normal strength, no muscle wasting Psychiatric: normal affect, normal behavior, A&O x 3 Hosp A/P (1) Acute on chronic pancreatitis Code(s): K85.90 - ACUTE PANCREATITIS WITHOUT NECROSIS OR INFECTION, UNSP; K86.1 - OTHER CHRONIC PANCREATITIS Status: Acute (2) Hyponatremia Code(s): E87.1 - HYPO-OSMOLALITY AND HYPONATREMIA Status: Resolved (3) Alcohol use Code(s): Z72.89 - OTHER PROBLEMS RELATED TO LIFESTYLE Status: Chronic (4) Anemia Code(s): D64.9 - ANEMIA, UNSPECIFIED Status: Chronic Qualifiers: Anemia type: unspecified type Qualified Code(s): D64.9 - Anemia, unspecified (5) Back pain Code(s): M54.9 - DORSALGIA, UNSPECIFIED Status: Chronic Qualifiers: Back pain location: low back pain Chronicity: chronic Back pain laterality: bilateral Sciatica presence: without sciatica Qualified Code(s): M54.5 - Low back pain; G89.29 - Other chronic pain (6) Bipolar disorder Code(s): F31.9 - BIPOLAR DISORDER, UNSPECIFIED Status: Chronic Qualifiers: Active/Remission status: remission status unspecified Qualified Code(s): F31.9 - Bipolar disorder, unspecified (7) Chronic pancreatitis Code(s): K86.1 - OTHER CHRONIC PANCREATITIS Status: Chronic (8) PTSD (post-traumatic stress disorder) Code(s): F43.10 - POST-TRAUMATIC STRESS DISORDER, UNSPECIFIED Status: Chronic (9) Pancreatic pseudocyst Code(s): K86.3 - PSEUDOCYST OF PANCREAS Status: Chronic (10) Hypokalemia Code(s): E87.6 - HYPOKALEMIA Status: Acute - Plan old records reviewed/req Today her H&H is better than yesterday, patient does not have any increased amount of pain, today we will reduce IV fluid to 75 mill per hour, today we will advance to full liquid diet and see how she tolerates, if she does well with the full liquid diet then will start low-fat diet Continue pain medication as ordered for pain control Ambulate as tolerated We will repeat labs tomorrow
[2020-02-02] MEDS: clonazePAM 1 MG TAB PO SCH ×2 (12:04→16:54)
--- NOTE | 2020-02-02 14:08 | PRG ---
DATE OF SERVICE: 02/02/2020 This is a cross coverage for Dr. Lee Adams. SUBJECTIVE: This is a 49-year-old female with recurrent pancreatitis. She was hospitalized in [place] recently and underwent cholecystectomy, following an episode of pancreatitis. The patient apparently was diagnosed with cirrhosis during last admission. The patient was admitted at this time with recurrence of pancreatitis. The patient was drinking very heavily recently. The patient's abdominal CAT scan shows peripancreatic inflammation and atherosclerosis. She is slowly but steadily getting better. Abdominal pain is markedly improved. She is on a clear liquid diet and the diet is being advanced to full liquid diet. There is no nausea or vomiting. She still complains of abdominal pain over the left upper quadrant. There is no nausea, no vomiting. OBJECTIVE: VITAL SIGNS: Afebrile, pulse is 80, blood pressure is 103/69. CARDIOVASCULAR SYSTEM: Within normal limits. LUNGS: Within normal limits. ABDOMEN: Soft. Abdomen is tender over the epigastric area on the left upper quadrant. No rebound or guarding. LABORATORY STUDIES: Her CBC shows hemoglobin 8.6, hematocrit 28.4. Apparently, revealed no areas of bleeding. Her blood count has been dropping down slowly from 11.6 to 7.9 yesterday and today, it came to 8.6. There is a possibility that she has some hematoma. CLINICAL IMPRESSION: 1. Recurrent pancreatitis. 2. Pancreatic pseudocyst. 3. Recent cholecystectomy. 4. There will be an element of alcoholic pancreatitis as she has been drinking heavily recently. RECOMMENDATIONS: 1. Advance diet to full liquid diet. 2. Follow up H and H. 3. No need for any abdominal CAT scan at the present time. If she does well on full liquid diet, I will advance the diet to hopefully low-fat diet in the next 24 hours. Job ID: [id number]
[2020-02-02] MEDS: Mirtazapine 15 MG TAB PO SCH (20:19)
[2020-02-03] MEDS: clonazePAM 1 MG TAB PO SCH ×4 (01:02→17:12)
[2020-02-03] MEDS: Diabetic Tussin 200 MG/10 ML UDCUP PO PRN ×3 (03:42→17:19)
[2020-02-03] MEDS: Sodium Chloride 0.9% 1,000 ML IV SCH ×3 (03:42→17:13)
[2020-02-03] MEDS: HYDROcodone/Acetaminophen 7.5/325 mg Tablet PO PRN ×4 (03:48→19:43)
[2020-02-03] MEDS: Levothyroxine Sodium 75 MCG TAB PO SCH (06:18)
[2020-02-03 06:47] LABS: #Eosinphils 0.2 thou/uL (0.0-0.7); #Lymphocytes 1.2 thou/uL (1.20-3.40); #Monocytes 0.4 thou/uL (0.11-0.59); #Neutrophils 4.5 thou/uL (1.40-6.50); %Basophils 0.2 % (0.0-1.0); %Eosinophils 3.2 % (0.0-10.0); %Lymphocytes 18.7 % (21.0-51.0); %Monocytes 6.7 % (0.0-10.0); %Neutrophils 71.2 % (42.0-75.0); Hemoglobin 7.7 g/dL (12.0-16.0); Mean Corpuscular HGB CONC 30.6 g/dL (32.0-36.0); Mean Corpuscular Hemoglobin 25.5 pg (27.0-31.0); Mean Corpuscular Volume 83.5 fL (78.0-98.0); Mean Platelet Volume 6.3 fL (7.4-10.4); Platelet Count 560 thou/uL (130-400); RBC Distribution Width 16.4 % (11.5-14.5); White Blood Cell (WBC) Count 6.3 thou/uL (4.8-10.8)
[2020-02-03 07:09] LABS: ALT (SGPT) 21 U/L (8-55); AST (SGOT) 37 U/L (5-34); Albumin 2.6 g/dL (3.5-5.0); Alkaline Phosphatase 246 U/L (40-110); Anion Gap 13 mmol/L (10-20); BUN (Urea Nitrogen) Less than 4 mg/dL (7.0-18.7); Bilirubin, Total 0.2 mg/dL (0.2-1.2); CRP (Inflammatory) 31.98 mg/dL (= or < 0.5); Calc. Creatinine Clearance 109 mL/min (70-130); Carbon Dioxide 22 mmol/L (22-29); Chloride 103 mmol/L (98-107); Estimated GFR-MDRD Greater than 90; Glucose 81 mg/dL (70-105); Lipase 26 U/L (8-78); Magnesium 1.9 mg/dL (1.6-2.6); Phosphorus 3.1 mg/dL (2.3-4.7); Potassium 3.5 mmol/L (3.5-5.1); Protein, Total 5.6 g/dL (6.0-8.3); Sodium 134 mmol/L (136-145)
[2020-02-03] MEDS: FLUoxetine HCl 20 MG CAP PO SCH (08:11)
[2020-02-03] MEDS: Folic Acid 1 MG TAB PO SCH (08:11)
[2020-02-03] MEDS: Bupropion 150 MG XL TAB PO SCH (08:11)
[2020-02-03] MEDS: risperiDONE 1 MG TAB PO SCH (08:11)
[2020-02-03] MEDS ORDERED: Potassium Chloride 20 MEQ TAB PO SCH (08:30)
--- NOTE | 2020-02-03 11:43 | PDOC.HOSPP ---
- Subjective Encounter Date: 02/03/20 Encounter Time: 08:20 Subjective: Patient seen and examined bedside today, patient still has abdominal pain, no nausea or vomiting, - Objective Vital Signs & Weight: Vital Signs (12 hours) Temp Pulse Resp BP BP Pulse Ox 02/03/20 07:13 98.5 F 101 H 16 114/77 97 02/03/20 07:09 100 16 94 L 02/03/20 04:00 97.3 F L 107 H 20 137/93 H 93 L 02/03/20 00:00 99.4 F 106 H 20 107/69 94 L Weight Weight 131 lb I&O: 02/02/20 02/03/20 02/04/20 06:59 06:59 06:59 Intake Total 1600 1725 Balance 1600 1725 Result Diagrams: 02/03/20 06:33 02/03/20 06:33 Hospitalist ROS - Review of Systems Eyes: denies: pain, vision change, conjunctivae inflammation, eyelid inflammation, redness, other ENT: denies: ear pain, ear discharge, nose pain, nose discharge, nose conges tion, mouth pain, mouth swelling, throat pain, throat swelling, other Respiratory: denies: cough, dry, shortness of breath, hemoptysis, SOB with excertion, pleuritic pain, sputum, wheezing, other Cardiovascular: denies: chest pain, palpitations, orthopnea, paroxysmal noc. dyspnea, edema, light headedness, other Gastrointestinal: reports: abdominal pain. denies: nausea, vomiting, diarrhea, constipation, melena, hematochezia, other Genitourinary: denies: dysuria, frequency, incontinence, hematuria, retention, other Musculoskeletal: denies: neck pain, shoulder pain, arm pain, back pain, hand pain, leg pain, foot pain, other Skin: denies: rash, lesions, gold, bruising, other - Medication Medications: Active Medications Generic Name Dose Route Start Last Admin Trade Name Freq PRN Reason Stop Dose Admin Hydrocodone Bitart/Acetaminophen 2 tab 01/30/20 12:34 02/03/20 08:24 Hydrocodone/Acetaminophen 7.5/325 Mg Tablet PO 2 tab Q4H PRN Administration Severe Pain (7-10) Albuterol/Ipratropium 3 ml 01/31/20 19:00 11/22/20 07:09 Ipratropium/Albuterol Sulfate 3 Ml Neb NEB 3 ml [id number] CHANDANA Administration Bupropion HCl 300 mg 02/01/20 09:00 02/03/20 08:11 Bupropion 150 Mg Xl Tab PO 300 mg DAILY CHANDANA Administration Clonazepam 2 mg 02/02/20 12:00 02/03/20 11:28 Clonazepam 1 Mg Tab PO 2 mg Q6HR CHANDANA Administration Fluoxetine HCl 20 mg 02/01/20 09:00 02/03/20 08:11 Fluoxetine Hcl 20 Mg Cap PO 20 mg DAILY CHANDANA Administration Folic Acid 1 mg 02/01/20 09:00 02/03/20 08:11 Folic Acid 1 Mg Tab PO 1 mg DAILY CHANDANA Administration Guaifenesin 300 mg 02/01/20 19:03 02/03/20 08:26 Diabetic Tussin 200 Mg/10 Ml Udcup PO 300 mg Q6H PRN Administration .COUGH Sodium Chloride 1,000 mls @ 75 mls/hr 02/02/20 11:51 02/03/20 11:28 Normal Saline 0.9% IV 1,000 mls .[id number] CHANDANA Administration Levothyroxine Sodium 75 mcg 01/31/20 06:00 02/03/20 06:18 Levothyroxine Sodium 75 Mcg Tab PO 75 mcg 0600 CHANDANA Administration Mirtazapine 7.5 mg 02/02/20 21:00 02/02/20 20:19 Mirtazapine 15 Mg Tab PO 7.5 mg HS CHANDANA Administration Morphine Sulfate 4 mg 01/30/20 12:49 01/30/20 20:11 Morphine 4 Mg/Ml Vial SLOW IVP 4 mg Q4H PRN Administration Severe Pain (7-10) Pantoprazole Sodium 40 mg 01/31/20 21:00 02/03/20 08:11 Pantoprazole 40 Mg Tab PO 40 mg BID CHANDANA Administration Potassium Chloride 40 meq 02/03/20 08:30 02/03/20 09:18 Potassium Chloride 20 Meq Tab PO 02/03/20 12:00 40 meq NOW CHANDANA Administration Quetiapine Fumarate 200 mg 01/31/20 21:00 02/02/20 20:21 Quetiapine Fumarate 200 Mg Tab PO 200 mg HS CHANDANA Administration Risperidone 1 mg 02/01/20 09:00 02/03/20 08:11 Risperidone 1 Mg Tab PO 1 mg DAILY CHANDANA Administration Senna/Docusate Sodium 2 tab 02/02/20 08:35 02/02/20 12:04 Senokot S 8.6-50 Mg Tab PO 2 tab BID PRN Administration Constipation - Exam General Appearance: NAD, awake alert Eye: PERRL, anicteric sclera ENT: normocephalic atraumatic, no oropharyngeal lesions Neck: supple, symmetric, no JVD, no thyromegaly Heart: RRR, no murmur, no gallops, no rubs Respiratory: no wheezes, no rales, no ronchi Gastrointestinal: soft, non-distended, normal bowel sounds, no palpable masses, tender to palpation Extremities: no cyanosis, no clubbing, no edema Skin: normal turgor, no lesions, no rashes Neurological: no focal deficits Musculoskeletal: normal tone, normal strength Psychiatric: normal affect, normal behavior Hosp A/P (1) Acute on chronic pancreatitis Code(s): K85.90 - ACUTE PANCREATITIS WITHOUT NECROSIS OR INFECTION, UNSP; K86.1 - OTHER CHRONIC PANCREATITIS Status: Acute (2) Hyponatremia Code(s): E87.1 - HYPO-OSMOLALITY AND HYPONATREMIA Status: Resolved (3) Alcohol use Code(s): Z72.89 - OTHER PROBLEMS RELATED TO LIFESTYLE Status: Chronic (4) Anemia Code(s): D64.9 - ANEMIA, UNSPECIFIED Status: Chronic Qualifiers: Anemia type: unspecified type Qualified Code(s): D64.9 - Anemia, unspecified (5) Back pain Code(s): M54.9 - DORSALGIA, UNSPECIFIED Status: Chronic Qualifiers: Back pain location: low back pain Chronicity: chronic Back pain laterality: bilateral Sciatica presence: without sciatica Qualified Code(s): M54.5 - Low back pain; G89.29 - Other chronic pain (6) Bipolar disorder Code(s): F31.9 - BIPOLAR DISORDER, UNSPECIFIED Status: Chronic Qualifiers: Active/Remission status: remission status unspecified Qualified Code(s): F31.9 - Bipolar disorder, unspecified (7) Chronic pancreatitis Code(s): K86.1 - OTHER CHRONIC PANCREATITIS Status: Chronic (8) PTSD (post-traumatic stress disorder) Code(s): F43.10 - POST-TRAUMATIC STRESS DISORDER, UNSPECIFIED Status: Chronic (9) Pancreatic pseudocyst Code(s): K86.3 - PSEUDOCYST OF PANCREAS Status: Chronic (10) Hypokalemia Code(s): E87.6 - HYPOKALEMIA Status: Acute - Plan old records reviewed/req, plan discussed w/ family, PT/OT, health social work professor, DVT proph w/lovenox Continue pain control, Continue full liquid diet Ambulate as tolerated with PT, I have provided counseling to avoid alcohol abuse, medication compliance education given, Yesterday patient's mother was interested in getting MRI lumbar spine for her back pain, but at this point we will start PT OT and to see if that is indicated while in hospital or that can be done as an outpatient basis. We will repeat labs tomorrow Medication reviewed noncontributory symptomatic and supportive care
--- NOTE | 2020-02-03 12:43 | PRG ---
DATE OF SERVICE: 02/03/2020 This is a cross coverage for Dr. Lee Adams. SUBJECTIVE: This is a 49-year-old female with recurrent pancreatitis. The patient was hospitalized 4 weeks ago with gallstone pancreatitis, underwent cholecystectomy. The patient . The patient has history of alcohol intake recently and was hospitalized 4 days ago with recurrence of abdominal pain. She was found to have evidence of pancreatitis again. CT scan showing pancreatic edema and swelling and also pseudocyst. Her symptoms slowly but steadily improving. She is on full liquid diet. She has no nausea or vomiting. She comes in for abdominal pain over the left upper quadrant going toward the back. She is passing stool, passing flatus. She wants to have pseudocyst drained. PHYSICAL EXAMINATION: VITAL SIGNS: Afebrile. Her pulse is 91, blood pressure is 113/78. HEENT: Conjunctivae are clear. CARDIOVASCULAR: Normal heart sounds. LUNGS: Clear to auscultation. ABDOMEN: Soft to palpate. Abdomen is tender . There is no rebound or guarding. LABORATORY DATA: Lab data shows blood count dropping down to 7.7 today, hematocrit 25. Yesterday, it was 8.6 and 28.4. The patient had no overt GI bleeding. RECOMMENDATIONS: 1. Follow up labs. 2. Advance diet as tolerated. 3. Obtain a noncontrast CT scan of abdomen today to make sure she has no retroperitoneal hematoma, which seems unlikely. Dr. Lee Adams will assume care from tomorrow. Job ID: [id number]
--- NOTE | 2020-02-03 14:25 | CT ---
CT abdomen and pelvis noncontrast HISTORY: Pancreatic pseudocyst. Evaluate for retroperitoneal hemorrhage. COMPARISON: 01/30/2020. FINDINGS: Each renal collecting system, ureter, and urinary bladder are decompressed without stone ap parent. Lack of contrast limits evaluation of the soft tissues. Patchy peripheral groundglass infiltrates involving each lung base have the appearance of COVID pneum onitis. Small amount of bilateral pleural fluid, left greater than right. The large, lobular complex predominantly fluid density mass within the left upper quadrant apparently originating from t he pancreatic tail now measures up to 9.6 cm length by 11.9 cm depth by 8.2 cm width. It dissects through the spleen, where inflammation superior to the spleen, abutting the undersurface of the left hemidiaphragm, has progressed. There is subtle stranding within the subcutaneous fat overlying the left anterolateral abdominal wall. Internal fixation right hip partially visualized. Chronic compression of the L1 superior endplate is similar in appearance to the prior CT exams. IMPRESSION : Continued enlargement of the complex left upper quadrant mass favored to represent a pancreatic pseud ocyst, with significant increase in inflammatory reaction in the left upper quadrant, including the diaphragm and left lung base. 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 CT appearance of COVID pneumonitis at each lung base. No evidence of urinary tract obstruction or calcification. Findings were discussed with Dr. Weathers at the time of the exam Code CR.
--- NOTE | 2020-02-03 20:01 | PRG ---
DATE OF SERVICE: 02/03/2020 This is a 49-year-old female with pancreatitis and pancreatic pseudocyst. She underwent a noncontrast CAT scan of abdomen today. The CAT scan shows the enlarging pancreatic cirrhosis and pushing on the stomach. Also has some inflammatory changes of pancreas eroding into the spleen. There was no bleeding, any rectal pain, or hematoma was seen. The patient is very anxious to have the cyst drained. I will let Dr. Lee Adams, her primary metal refiner decide whether he wants to send her at all for the endoscopic sonogram with internal drainage. Job ID: [id number]
[2020-02-03] MEDS: Mirtazapine 15 MG TAB PO SCH (21:30)
[2020-02-04] MEDS: clonazePAM 1 MG TAB PO SCH ×4 (00:27→20:07)
[2020-02-04] MEDS: HYDROcodone/Acetaminophen 7.5/325 mg Tablet PO PRN ×5 (00:46→20:05)
[2020-02-04] MEDS: Levothyroxine Sodium 75 MCG TAB PO SCH (05:45)
[2020-02-04] MEDS: Sodium Chloride 0.9% 1,000 ML IV SCH ×2 (05:45→20:07)
[2020-02-04 06:33] LABS: #Eosinphils 0.2 thou/uL (0.0-0.7); #Monocytes 0.5 thou/uL (0.11-0.59); #Neutrophils 4.9 thou/uL (1.40-6.50); %Basophils 0.3 % (0.0-1.0); %Eosinophils 2.6 % (0.0-10.0); %Lymphocytes 26.3 % (21.0-51.0); %Neutrophils 63.9 % (42.0-75.0); Hemoglobin 8.6 g/dL (12.0-16.0); Mean Corpuscular Hemoglobin 25.7 pg (27.0-31.0); Mean Corpuscular Volume 82.9 fL (78.0-98.0); Mean Platelet Volume 6.8 fL (7.4-10.4); Platelet Count 693 thou/uL (130-400); RBC Distribution Width 16.5 % (11.5-14.5); Red Blood Cell (RBC) Count 3.35 mill/uL (4.20-5.40); White Blood Cell (WBC) Count 7.7 thou/uL (4.8-10.8)
[2020-02-04 06:49] LABS: ALT (SGPT) 16 U/L (8-55); AST (SGOT) 26 U/L (5-34); Albumin 2.9 g/dL (3.5-5.0); Alkaline Phosphatase 219 U/L (40-110); Anion Gap 13 mmol/L (10-20); BUN (Urea Nitrogen) Less than 4 mg/dL (7.0-18.7); Bilirubin, Total 0.3 mg/dL (0.2-1.2); Calc. Creatinine Clearance 97 mL/min (70-130); Calcium 9.2 mg/dL (7.8-10.44); Carbon Dioxide 27 mmol/L (22-29); Chloride 100 mmol/L (98-107); Estimated GFR-MDRD Greater than 90; Globulin 3.6 g/dL (2.4-3.5); Glucose 79 mg/dL (70-105); Potassium 3.9 mmol/L (3.5-5.1); Protein, Total 6.5 g/dL (6.0-8.3); Sodium 136 mmol/L (136-145)
[2020-02-04] MEDS ORDERED: Enoxaparin Sodium 40 MG/0.4 ML SYRINGE SC SCH (09:00)
[2020-02-04] MEDS: Bupropion 150 MG XL TAB PO SCH (09:53)
[2020-02-04] MEDS: FLUoxetine HCl 20 MG CAP PO SCH (09:54)
[2020-02-04] MEDS: Folic Acid 1 MG TAB PO SCH (09:54)
--- NOTE | 2020-02-04 11:13 | PRG ---
DATE OF SERVICE: 02/04/2020 SUBJECTIVE: Ms. Odell feels that her abdominal pain is much more localized to the left upper quadrant, the left side of the back, and the left shoulder. She is not having that generalized abdominal pain anymore. Nausea is improved. She has been afebrile and hemodynamically stable. She has been tolerating some full liquids. The abdominal pain severity, however, has really not improved overall. CT scan performed yesterday demonstrated interval enlargement of the pseudocyst from admission, with the appearance of dissection into the spleen. OBJECTIVE: VITAL SIGNS: Temperature 98.7, pulse 100, blood pressure 106/73, 93% oxygen saturation on 4 L nasal cannula. GENERAL: No acute distress. HEART: Regular. Borderline tachycardia. LUNGS: Clear to auscultation bilaterally. ABDOMEN: Bowel sounds hypoactive, but present. Soft, tender to palpation in the left abdomen. EXTREMITIES: No peripheral edema. LABORATORY STUDIES: WBC 7.7, hemoglobin 8.6, platelets continue to trend up now to 693. Sodium 134, potassium 3.5, BUN less than 4, creatinine 0.58, total bilirubin 0.2, alkaline phosphatase 246, AST 37, ALT 21. CRP remains elevated at 31.98. Lipase down to 26. COVID PCR from admission was negative. IMAGING STUDIES: CT of the abdomen and pelvis from yesterday shows interval enlargement of her complex left upper quadrant mass, which is favored to represent a pancreatic pseudocyst. There is an increase in inflammatory reaction in the left upper quadrant including the diaphragm and left lung base with a dissection of inflammation into the splenic tissue. The pseudocyst now measures 9.6 cm in length x 11.9 cm in depth x 8.2 cm in width. ASSESSMENT AND PLAN: 1. Complex pancreatic pseudocyst, enlarging just over the past 4 days of admission, with dissection into the splenic tissue. 2. Pancreatitis, recurrent. 3. Abdominal pain, left upper quadrant secondary to inflamed pancreatic pseudocyst. 4. Thrombocytosis, worsening despite supportive care. I am a bit concerned about the interval enlargement of the complex pancreatic pseudocyst and dissection of the inflammation into the splenic tissue over the course of this admission. I think the patient would best be served by evaluation at a tertiary center with capability for endoscopic ultrasound and potentially endoscopic ultrasound guided drainage of the pseudocyst, with pancreatic surgical backup. I am going to make efforts to see if we can get the patient transferred to a tertiary center for endoscopic ultrasound. If we are not able to accomplish transfer, then as a backup plan here, we would go ahead and get surgical opinion. Job ID: [id number]
--- NOTE | 2020-02-04 11:30 | PDOC.HOSPP ---
- Subjective Encounter Date: 02/04/20 Encounter Time: 08:15 Subjective: Patient has worsening left upper quadrant pain, patient also has cough and her voice become hoarse, she has sore throat - Objective Vital Signs & Weight: Vital Signs (12 hours) Temp Pulse Resp BP BP BP Pulse Ox 02/04/20 11:12 98.3 F 96 16 102/69 96 02/04/20 07:15 98.7 F 100 15 106/73 93 L 02/04/20 06:11 96 14 92 L 02/04/20 00:33 12 02/04/20 00:00 98.2 F 108 H 20 130/89 97 Weight Weight 131 lb I&O: 02/03/20 02/04/20 02/05/20 06:59 06:59 06:59 Intake Total 1725 1187 Balance 1725 1187 Result Diagrams: 02/04/20 05:40 02/04/20 05:40 Radiology Reviewed by me: Yes (CT abdomen and pelvis reviewed) Hospitalist ROS - Review of Systems ENT: reports: throat pain. denies: ear pain, ear discharge, nose pain, nose discharge, nose congestion, mouth pain, mouth swelling, throat swelling, other Respiratory: reports: cough. denies: dry, shortness of breath, hemoptysis, SOB with excertion, pleuritic pain, sputum, wheezing, other Cardiovascular: denies: chest pain, palpitations, orthopnea, paroxysmal noc. dyspnea, edema, light headedness, other Gastrointestinal: reports: abdominal pain. denies: nausea, vomiting, diarrhea, constipation, melena, hematochezia, other Genitourinary: denies: dysuria, frequency, incontinence, hematuria, retention, other Musculoskeletal: denies: neck pain, shoulder pain, arm pain, back pain, hand pain, leg pain, foot pain, other - Medication Medications: Active Medications Generic Name Dose Route Start Last Admin Trade Name Freq PRN Reason Stop Dose Admin Hydrocodone Bitart/Acetaminophen 2 tab 01/30/20 12:34 02/04/20 10:47 Hydrocodone/Acetaminophen 7.5/325 Mg Tablet PO 2 tab Q4H PRN Administration Severe Pain (7-10) Albuterol/Ipratropium 3 ml 01/31/20 19:00 02/04/20 06:11 Ipratropium/Albuterol Sulfate 3 Ml Neb NEB 3 ml [id number] CHANDANA Administration Bupropion HCl 300 mg 02/01/20 09:00 02/04/20 09:53 Bupropion 150 Mg Xl Tab PO 300 mg DAILY CHANDANA Administration Clonazepam 2 mg 02/02/20 12:00 02/04/20 05:47 Clonazepam 1 Mg Tab PO Not Given Q6HR CHANDANA Enoxaparin Sodium 40 mg 02/04/20 09:00 02/04/20 09:54 Enoxaparin Sodium 40 Mg/0.4 Ml Syringe SC 40 mg 0900 CHANDANA Administration Fluoxetine HCl 20 mg 02/01/20 09:00 02/04/20 09:54 Fluoxetine Hcl 20 Mg Cap PO 20 mg DAILY CHANDANA Administration Folic Acid 1 mg 02/01/20 09:00 02/04/20 09:54 Folic Acid 1 Mg Tab PO 1 mg DAILY CHANDANA Administration Guaifenesin 300 mg 02/01/20 19:03 02/03/20 17:19 Diabetic Tussin 200 Mg/10 Ml Udcup PO 300 mg Q6H PRN Administration .COUGH Sodium Chloride 1,000 mls @ 75 mls/hr 02/02/20 11:51 02/04/20 05:45 Normal Saline 0.9% IV 1,000 mls .[id number] CHANDANA Administration Levothyroxine Sodium 75 mcg 01/31/20 06:00 02/04/20 05:45 Levothyroxine Sodium 75 Mcg Tab PO 75 mcg 0600 CHANDANA Administration Loperamide HCl 2 mg 02/02/20 08:35 02/03/20 14:18 Loperamide Hcl 2 Mg Cap PO 2 mg PRN PRN Administration Diarrhea/Loose Stools Mirtazapine 7.5 mg 02/02/20 21:00 02/03/20 21:30 Mirtazapine 15 Mg Tab PO 7.5 mg HS CHANDANA Administration Morphine Sulfate 4 mg 01/30/20 12:49 01/30/20 20:11 Morphine 4 Mg/Ml Vial SLOW IVP 4 mg Q4H PRN Administration Severe Pain (7-10) Pantoprazole Sodium 40 mg 01/31/20 21:00 02/04/20 09:54 Pantoprazole 40 Mg Tab PO 40 mg BID CHANDANA Administration Quetiapine Fumarate 200 mg 01/31/20 21:00 02/03/20 21:30 Quetiapine Fumarate 200 Mg Tab PO 200 mg HS CHANDANA Administration Risperidone 1 mg 02/01/20 09:00 02/03/20 08:11 Risperidone 1 Mg Tab PO 1 mg DAILY CHANDANA Administration Senna/Docusate Sodium 2 tab 02/02/20 08:35 02/02/20 12:04 Senokot S 8.6-50 Mg Tab PO 2 tab BID PRN Administration Constipation - Exam General Appearance: NAD, awake alert Eye: PERRL, anicteric sclera ENT: normocephalic atraumatic, no oropharyngeal lesions Neck: supple, symmetric, no JVD, no thyromegaly Heart: RRR, no murmur, no gallops, no rubs Respiratory: no wheezes, no rales, no ronchi Respiratory - other findings: Bilateral coarse breath sound Gastrointestinal: soft, non-distended, normal bowel sounds Gastrointestinal - other findings: Left-sided abdominal tenderness Extremities: no cyanosis, no clubbing, no edema Skin: normal turgor, no lesions Neurological: no focal deficits Musculoskeletal: normal tone, normal strength, no muscle wasting Psychiatric: normal affect, normal behavior Hosp A/P (1) Acute on chronic pancreatitis Code(s): K85.90 - ACUTE PANCREATITIS WITHOUT NECROSIS OR INFECTION, UNSP; K86.1 - OTHER CHRONIC PANCREATITIS Status: Acute (2) Hyponatremia Code(s): E87.1 - HYPO-OSMOLALITY AND HYPONATREMIA Status: Resolved (3) Alcohol use Code(s): Z72.89 - OTHER PROBLEMS RELATED TO LIFESTYLE Status: Chronic (4) Anemia Code(s): D64.9 - ANEMIA, UNSPECIFIED Status: Chronic Qualifiers: Anemia type: unspecified type Qualified Code(s): D64.9 - Anemia, unspecified (5) Back pain Code(s): M54.9 - DORSALGIA, UNSPECIFIED Status: Chronic Qualifiers: Back pain location: low back pain Chronicity: chronic Back pain laterality: bilateral Sciatica presence: without sciatica Qualified Code(s): M54.5 - Low back pain; G89.29 - Other chronic pain (6) Bipolar disorder Code(s): F31.9 - BIPOLAR DISORDER, UNSPECIFIED Status: Chronic Qualifiers: Active/Remission status: remission status unspecified Qualified Code(s): F31.9 - Bipolar disorder, unspecified (7) Chronic pancreatitis Code(s): K86.1 - OTHER CHRONIC PANCREATITIS Status: Chronic (8) PTSD (post-traumatic stress disorder) Code(s): F43.10 - POST-TRAUMATIC STRESS DISORDER, UNSPECIFIED Status: Chronic (9) Pancreatic pseudocyst Code(s): K86.3 - PSEUDOCYST OF PANCREAS Status: Chronic (10) Hypokalemia Code(s): E87.6 - HYPOKALEMIA Status: Acute - Plan old records reviewed/req CT abdomen and pelvis showed worsening of complex left upper quadrant pseudocyst with dissection into spleen with inflammatory response, CT appearance of Covid pneumonitis but her COVID-19 was negative, will check influenza a and B given he r current symptoms, gastroenterology recommendation appreciated, will see if patient able to be transferred to other hospital or not.
--- NOTE | 2020-02-04 12:52 | PDOC.DS.DS ---
Provider - Provider Date of Admission: 01/30/20 13:48 Date of Discharge: 02/04/20 Admitting Provider: Travis Stout MD Consultations: Gastroentrology Primary Care Physician: OUT OF TOWN Course - Hospital Course Hospital Course: 49-year-old female who was admitted on January 30, 2020, on admission patient had CT abdomen and pelvis which showed 5.9 into 5.4 cm pancreatic pseudocyst and pancreatitis, her triglyceride was normal, her pancreatitis was related with alcoholic pancreatitis, GI was consulted, patient was treated conservatively with IV fluid, pain control, n.p.o. status and subsequently patient's laboratory parameters was improving, her electrolytes was also corrected, she had significantly inflammation and she was started complaining of left upper quadrant pain so we repeated CT abdomen and pelvis which showed increase in the size of pancreatic pseudocyst. Gastroenterology recommended to transfer to tertiary care facility where endoscopic ultrasound available for drainage of the cyst. Today I spoke with Dr. Perez and per Dr. Perez accepted at [facility] for further care. Patient is overall medically stable for discharge. Her Covid test is negative. And she is hemodynamically stable. Resuscitation Status: 01/30/20 12:34 Resuscitation Status Routine Co-Sign Provider: Resuscitation Status: FULL: Full Resuscitation Discussed with: pt and mother Additional comments: DPOA: Leonor Hewitt- mother - Labs Lab Results: 02/04/20 05:40 02/04/20 05:40 Abnormal Lab Results - Last 48 hrs 02/03/20 06:33: Sodium 134 L, BUN Less than 4 L, Creatinine 0.58 L, AST 37 H, Alkaline Phosphatase 246 H, C-Reactive Protein 31.98 H, Serum Total Protein 5.6 L, Albumin 2.6 L, Albumin/Globulin Ratio 0.9 L 02/03/20 06:33: RBC 3.00 L, Hgb 7.7 L, Hct 25.0 L, MCH 25.5 L, MCHC 30.6 L, RDW 16.4 H, Plt Count 560 H, MPV 6.3 L, Lymphocytes % 18.7 L 02/04/20 05:40: BUN Less than 4 L, Alkaline Phosphatase 219 H, Albumin 2.9 L, Globulin 3.6 H, Albumin/Globulin Ratio 0.8 L 02/04/20 05:40: RBC 3.35 L, Hgb 8.6 L, Hct 27.7 L, MCH 25.7 L, MCHC 31.0 L, RDW 16.5 H, Plt Count 693 H, MPV 6.8 L - Physical Exam Vitals: Vital Signs (12 hours) Temp Pulse Resp BP BP Pulse Ox 02/04/20 11:12 98.3 F 96 16 102/69 96 02/04/20 07:15 98.7 F 100 15 106/73 93 L 02/04/20 06:11 96 14 92 L Weight Weight 131 lb Physical Exam: The patient was seen and examined on the day of discharge. Problem - Problem (1) Acute on chronic pancreatitis Code(s): K85.90 - ACUTE PANCREATITIS WITHOUT NECROSIS OR INFECTION, UNSP; K86.1 - OTHER CHRONIC PANCREATITIS Status: Acute (2) Hyponatremia Code(s): E87.1 - HYPO-OSMOLALITY AND HYPONATREMIA Status: Resolved (3) Alcohol use Code(s): Z72.89 - OTHER PROBLEMS RELATED TO LIFESTYLE Status: Chronic (4) Anemia Code(s): D64.9 - ANEMIA, UNSPECIFIED Status: Chronic Qualifiers: Anemia type: unspecified type Qualified Code(s): D64.9 - Anemia, unspecified (5) Back pain Code(s): M54.9 - DORSALGIA, UNSPECIFIED Status: Chronic Qualifiers: Back pain location: low back pain Chronicity: chronic Back pain laterality: bilateral Sciatica presence: without sciatica Qualified Code(s): M54.5 - Low back pain; G89.29 - Other chronic pain (6) Bipolar disorder Code(s): F31.9 - BIPOLAR DISORDER, UNSPECIFIED Status: Chronic Qualifiers: Active/Remission status: remission status unspecified Qualified Code(s): F 31.9 - Bipolar disorder, unspecified (7) Chronic pancreatitis Code(s): K86.1 - OTHER CHRONIC PANCREATITIS Status: Chronic (8) PTSD (post-traumatic stress disorder) Code(s): F43.10 - POST-TRAUMATIC STRESS DISORDER, UNSPECIFIED Status: Chronic (9) Pancreatic pseudocyst Code(s): K86.3 - PSEUDOCYST OF PANCREAS Status: Chronic (10) Hypokalemia Code(s): E87.6 - HYPOKALEMIA Status: Acute Plan - Discharge Medications Home Medications: Medication Instructions Recorded Confirmed Type Albuterol Sulfate [Proventil Hfa] 2 puff INH Q4H PRN 01/30/20 01/30/20 History Bupropion HCl [buPROPion HCl XL] 2 tab PO DAILY 01/30/20 01/30/20 History FLUoxetine HCl [Prozac] 1 cap PO DAILY 01/30/20 01/30/20 History Folic Acid [Folvite] 1 tab PO DAILY 01/30/20 01/30/20 History Levothyroxine Sodium [Synthroid] 1 tab PO DAILY 01/30/20 01/30/20 History Mirtazapine 1 tab PO HS 01/30/20 01/30/20 History Ondansetron [Zofran ODT] 1 tab SL Q6HR PRN 01/30/20 01/30/20 History Pantoprazole [Protonix] 1 tab PO BID 01/30/20 01/30/20 History QUEtiapine Fumarate [SEROquel] 1 tab PO HS 01/30/20 01/30/20 History clonazePAM [Clonazepam] 1 tab PO Q6HR 01/30/20 01/30/20 History risperiDONE [RisperDAL] 1 tab PO DAILY 01/30/20 01/30/20 History Allergies: Penicillins Allergy (Verified 01/30/20 14:17) - Discharge Instructions Activity:: Activity as Tolerated Nourishment:: Other Therapies:: Not Applicable Equipment/Supplies:: Not Applicable IV Therapy:: Not Applicable - Follow up Plan Referrals: [facility] PHYSICIAN,OUT OF [Primary Care Provider] - Disposition: OTHER HOSPITAL IN Quality - Care Measures CORE MEASURES:: N/A
[2020-02-04] MEDS: risperiDONE 1 MG TAB PO SCH (13:27)
--- NOTE | 2020-02-04 14:32 | PQF ---
CLINICAL DOCUMENTATION CLARIFICATION FORM: Dear Dr. Tee Date: 02/04/20 Please exercise your independent, professional judgment in responding to the clarification form. Clinical indicators are provided on the bottom of this form for your review. Please check appropriate box(es): [ ] Sepsis due to: [ ] Localized infection without sepsis [ x ] SIRS due to non-infectious process (please specify etiology) [ ] with organ dysfunction [x ] without organ dysfunction [ ] Other diagnosis [ ] Unable to determine In addition, please specify: Present on Admission (POA): [ x ] Yes [ ] No [ ] Unable to determine For continuity of documentation, please document condition throughout progress notes and discharge summary. Thank You. To be completed by CDI/Coding staff for physician review: CLINICAL INDICATORS - SIGNS / SYMPTOMS / LABS / RESULTS AND LOCATION IN MR PULSE 102 - 118 WBC 14.7 CRP 02/02: 31.98 RISK FACTORS / RESULTS AND LOCATION IN MR RISKS: PANCREATITIS (H&P) TREATMENTS / RESULTS AND LOCATION IN MR TREATMENT: IV FLUIDS (ER-02/03) GI CONSULT 01/29 CDS Signature: Margarette Clemente Phone #: [phone] Date: 02/04/20 This is a permanent part of the Medical Record [facility]
[2020-02-04] MEDS: Diabetic Tussin 200 MG/10 ML UDCUP PO PRN (15:50)
[2020-02-04 19:29] VITALS: BP 127/86; TEMP 98.7
[2020-02-04] MEDS: Mirtazapine 15 MG TAB PO SCH (20:06)
== END 2020-02-04 21:30 | disposition short-term general hospital (02) | DRG 439 ==
LOC: ERS 08:55 → T4-B 13:48
PROVIDERS: ADMIT Internal Medicine; ATTEND Internal Medicine
DX: K85.20 Alcohol induced acute pancreatitis without necrosis or infection (principal); K86.3 Pseudocyst of pancreas; R65.10 Systemic inflammatory response syndrome (SIRS) of non-infectious origin without acute organ dysfunction; E87.1 Hypo-osmolality and hyponatremia; Z20.828 Contact with and (suspected) exposure to other viral communicable diseases; D64.9 Anemia, unspecified; M54.5 Low back pain; G89.29 Other chronic pain; F31.9 Bipolar disorder, unspecified; K86.0 Alcohol-induced chronic pancreatitis; F43.10 Post-traumatic stress disorder, unspecified; E87.6 Hypokalemia; J45.909 Unspecified asthma, uncomplicated; K21.9 Gastro-esophageal reflux disease without esophagitis; F17.210 Nicotine dependence, cigarettes, uncomplicated; D73.5 Infarction of spleen; B18.2 Chronic viral hepatitis C; F10.10 Alcohol abuse, uncomplicated; D47.3 Essential (hemorrhagic) thrombocythemia; J02.9 Acute pharyngitis, unspecified; E03.9 Hypothyroidism, unspecified; Z90.49 Acquired absence of other specified parts of digestive tract; Z79.51 Long term (current) use of inhaled steroids; Z79.82 Long term (current) use of aspirin; Z79.890 Hormone replacement therapy; Z88.0 Allergy status to penicillin; Z79.1 Long term (current) use of non-steroidal anti-inflammatories (NSAID); Z79.899 Other long term (current) drug therapy; I25.2 Old myocardial infarction
CPT/HCPCS: 36415; 74176; 74177; 80048; 80053; 80061; 81001; 83690; 83735; 84100; 84484; 85025; 86140; 87631; 87635; 93005; 94640; 96365; 96375; 96376; C9113; J1650; J2270; J2405; J3411; J7042; J7620; Q9967; U0003

== ENCOUNTER 2020-04-14 12:07 | Emergency (ER) | payer MEDICARE, MEDICAID ==
[2020-04-14 13:31] LABS: Bilirubin Negative (Negative); Blood, Urine Negative (Negative); Clarity Clear (Clear); Glucose, Urine (Dipstick) Normal (Negative); Ketone, Urine Negative (Negative); Leukocyte Negative Leu/uL (Negative); Nitrite Negative (Negative); Protein, Urine (Dipstick) Negative (Neg-Trace); Specific Gravity, Urine 1.004 (1.002-1.036); Urobilinogen Normal mg/dL (Less than 2); pH, Urine 5.5 (5.0-9.0)
[2020-04-14 13:38] LABS: #Basophils 0.1 thou/uL (0.0-0.2); #Eosinphils 0.1 thou/uL (0.0-0.7); #Lymphocytes 3.6 thou/uL (1.20-3.40); #Monocytes 0.5 thou/uL (0.11-0.59); #Neutrophils 5.5 thou/uL (1.40-6.50); %Basophils 0.7 % (0.0-1.0); %Monocytes 5.4 % (0.0-10.0); %Neutrophils 55.8 % (42.0-75.0); Hemoglobin 11.4 g/dL (12.0-16.0); Mean Corpuscular HGB CONC 31.9 g/dL (32.0-36.0); Mean Corpuscular Hemoglobin 25.5 pg (27.0-31.0); Mean Corpuscular Volume 79.9 fL (78.0-98.0); Mean Platelet Volume 6.3 fL (7.4-10.4); Platelet Count 568 thou/uL (130-400); RBC Distribution Width 20.8 % (11.5-14.5); Red Blood Cell (RBC) Count 4.47 mill/uL (4.20-5.40); White Blood Cell (WBC) Count 9.8 thou/uL (4.8-10.8)
[2020-04-14 13:42] LABS: Amphetamine Not Detected (NotDetected); Barbiturates Screen Not Detected (NotDetected); Benzodiazepine Screen Not Detected (NotDetected); Cocaine Metabolite Screen Not Detected (NotDetected); Medtox Control Line Valid? VALID (VALID); Medtox Reader # READER 4; Methadone Not Detected (NotDetected); Methamphetamine Not Detected (NotDetected); Opiate Screen Not Detected (NotDetected); Oxycodone Screen Not Detected (NotDetected); Phencyclidine (PCP) Not Detected (NotDetected); THC/Cannabinoid Screen Not Detected (NotDetected); Tricyclic Screen Not Detected (NotDetected)
[2020-04-14 13:58] LABS: ALT (SGPT) 17 U/L (8-55); AST (SGOT) 19 U/L (5-34); Acetaminophen Less than 6.0 mcg/mL (10.0-30.0); Alcohol 194 mg/dL (Less than 10); Alkaline Phosphatase 109 U/L (40-110); Anion Gap 14 mmol/L (10-20); BUN (Urea Nitrogen) 11 mg/dL (7.0-18.7); Bilirubin, Total 0.2 mg/dL (0.2-1.2); Calc. Creatinine Clearance 0 mL/min (70-130); Calcium 8.8 mg/dL (7.8-10.44); Carbon Dioxide 27 mmol/L (22-29); Chloride 102 mmol/L (98-107); Globulin 3.3 g/dL (2.4-3.5); Glucose 75 mg/dL (70-105); Potassium 3.9 mmol/L (3.5-5.1); Protein, Total 7.3 g/dL (6.0-8.3); Salicylate Less than 8.0 mg/dL (15.0-30.0); Sodium 139 mmol/L (136-145)
[2020-04-14] MEDS ORDERED: hydrOXYzine 25 MG TAB ONE (15:28)
[2020-04-15] MEDS ORDERED: Multivitamins, Adult 10 ML, Thiamine HCl 100 MG, Folic Acid 1 MG in Dextrose 5 %-0.45 %... IV SCH (09:00)
== END 2020-04-14 16:40 | disposition home or self-care (01) ==
LOC: ERS 12:07
DX: F10.129 Alcohol abuse with intoxication, unspecified (principal); Y90.6 Blood alcohol level of 120-199 mg/100 ml; I25.2 Old myocardial infarction; J45.909 Unspecified asthma, uncomplicated; E03.9 Hypothyroidism, unspecified; F17.210 Nicotine dependence, cigarettes, uncomplicated; Z79.899 Other long term (current) drug therapy
CPT/HCPCS: 36415; 80053; 80306; 80307; 81003; 84443; 85025; 99284

== ENCOUNTER 2020-05-09 12:32 | Outpatient (CLI) | payer MEDICARE, MEDICAID ==
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
--- NOTE | 2020-05-09 14:18 | MRI ---
MRI thoracic spine noncontrast: 05/09/2020 FINDINGS: All vertebral body heights are maintained in the thoracic spine proper. Partial visualization of multilevel high-grade degenerative disc disease of the cervical spine seen o n sagittal field test engineer images. No high-grade degenerative disc disease in the thoracic spine. Mild disc space narrowing and tiny, shallow broad-based disc protrusions at multiple levels, without contacting spinal cord and without causing central spinal canal stenosis. No neural foraminal stenosis. Straightening of the normal curvature. Normal bone marrow signal. Thoracic spinal cord is normal in size and signal. No major pathology of perivertebral spaces. Minimal chronic anterior wedging of L1 vertebral body. IMPRESSION: 1. Straightening of the normal thoracic curvature. This may or may not represent muscle spasm. 2. Mild, minimal multilevel thoracic spondylosis. 3. Otherwise normal thoracic spine.
== END 2020-05-09 12:33 | disposition home or self-care (01) ==
LOC: SCSMRI 12:32
PROVIDERS: ATTEND Neurological Surgery
DX: M54.6 Pain in thoracic spine (principal); M54.5 Low back pain; M54.2 Cervicalgia; M43.9 Deforming dorsopathy, unspecified; M47.814 Spondylosis without myelopathy or radiculopathy, thoracic region; M47.816 Spondylosis without myelopathy or radiculopathy, lumbar region; M47.812 Spondylosis without myelopathy or radiculopathy, cervical region
CPT/HCPCS: 72141; 72146; 72148

== ENCOUNTER 2020-10-29 14:01 | Emergency (ER) | payer MEDICARE, MEDICAID ==
[2020-10-29] MEDS ORDERED: Ondansetron PF 4 MG/2 ML Vial ONE (14:22)
[2020-10-29] MEDS ORDERED: Magnesium 2 GM/50 ML BAG (IN WATER) ONE (14:52)
[2020-10-29 15:13] LABS: #Lymphocytes 2.4 thou/uL (1.20-3.40); #Monocytes 0.3 thou/uL (0.11-0.59); #Neutrophils 4.9 thou/uL (1.40-6.50); %Basophils 0.3 % (0.0-1.0); %Eosinophils 0.3 % (0.0-10.0); %Lymphocytes 31.1 % (21.0-51.0); %Neutrophils 64.3 % (42.0-75.0); Mean Corpuscular HGB CONC 33.8 g/dL (32.0-36.0); Mean Corpuscular Hemoglobin 30.7 pg (27.0-31.0); Mean Corpuscular Volume 91.1 fL (78.0-98.0); Mean Platelet Volume 5.9 fL (7.4-10.4); Platelet Count 706 thou/uL (130-400); RBC Distribution Width 17.7 % (11.5-14.5); Red Blood Cell (RBC) Count 4.55 mill/uL (4.20-5.40); White Blood Cell (WBC) Count 7.6 thou/uL (4.8-10.8)
[2020-10-29 15:20] LABS: BHCG - Serum Negative (NEGATIVE); Pregs Control Background? CLEAR/WHITE (CLR/WHITE); Pregs Control Bar Appear? YES (CONTROL BAR)
[2020-10-29 15:28] LABS: Actual Bicarbonate (HCO3v) 20 mEq/L (22-28); Analyzer IN Cardio ER; Base Excess -0.4 mEq/L (-2.0 to +3.0); Calcium, Ionized (venous) 1.01 mmol/L (1.16-1.32); Chloride (VBG) 104 mmol/L (98-106); Hemoglobin (Hb) 14.6 g/dL (11.7-16.0); Sodium 139.9 mmol/L (133-146); pH (venous) 7.55 (7.32-7.43)
[2020-10-29 15:31] LABS: ALT (SGPT) 12 U/L (8-55); AST (SGOT) 19 U/L (5-34); Acetaminophen Less than 6.0 mcg/mL (10.0-30.0); Albumin 3.6 g/dL (3.5-5.0); Alcohol 158 mg/dL (Less than 10); Alkaline Phosphatase 150 U/L (40-110); Anion Gap 20 mmol/L (10-20); BUN (Urea Nitrogen) 7 mg/dL (9.8-20.1); Bilirubin, Total Less than 0.2 mg/dL (0.2-1.2); CK (CPK) 83 U/L (29-168); Calc. Creatinine Clearance 0 mL/min (70-130); Calcium 9.2 mg/dL (7.8-10.44); Carbon Dioxide 19 mmol/L (22-29); Chloride 102 mmol/L (98-107); Globulin 3.7 g/dL (2.4-3.5); Glucose 108 mg/dL (70-105); Magnesium 1.6 mg/dL (1.6-2.6); Potassium 3.6 mmol/L (3.5-5.1); Protein, Total 7.3 g/dL (6.0-8.3); Salicylate Less than 8.0 mg/dL (15.0-30.0); Sodium 137 mmol/L (136-145)
[2020-10-29 16:24] LABS: Bilirubin Negative (Negative); Blood, Urine Negative (Negative); Clarity Clear (Clear); Glucose, Urine (Dipstick) Normal (Negative); Ketone, Urine Negative (Negative); Leukocyte Negative Leu/uL (Negative); Nitrite Negative (Negative); Protein, Urine (Dipstick) Negative (Neg-Trace); Specific Gravity, Urine 1.013 (1.002-1.036); Urobilinogen Normal mg/dL (Less than 2)
[2020-10-29 16:31] LABS: Amphetamine Not Detected (NotDetected); Barbiturates Screen Not Detected (NotDetected); Benzodiazepine Screen Not Detected (NotDetected); Cocaine Metabolite Screen Not Detected (NotDetected); Methadone Not Detected (NotDetected); Methamphetamine Not Detected (NotDetected); Opiate Screen Detected (NotDetected); Oxycodone Screen Not Detected (NotDetected); Phencyclidine (PCP) Not Detected (NotDetected); THC/Cannabinoid Screen Detected (NotDetected); Tricyclic Screen Not Detected (NotDetected)
[2020-10-29] MEDS ORDERED: Lorazepam 2 MG/ML VIAL ONE (18:22)
[2020-10-29] MEDS ORDERED: Promethazine HCl 25 MG/ML VIAL ONE (18:22)
== END 2020-10-29 23:08 | disposition home or self-care (01) ==
LOC: ERS 14:01
DX: F10.10 Alcohol abuse, uncomplicated (principal); I25.2 Old myocardial infarction; E03.9 Hypothyroidism, unspecified; J45.909 Unspecified asthma, uncomplicated; F17.200 Nicotine dependence, unspecified, uncomplicated; Z87.19 Personal history of other diseases of the digestive system
CPT/HCPCS: 36415; 71045; 80053; 80306; 80307; 81003; 82550; 82805; 83735; 83880; 84484; 84703; 85025; 93005; 96365; 96367; 96375; J2060; J2405; J2550; J3475

== ENCOUNTER 2020-11-08 21:20 | Emergency (ER) | payer OTHER, MEDICARE, MEDICAID ==
[2020-11-08 21:37] LABS: #Basophils 0.1 thou/uL (0.0-0.2); #Eosinphils 0.1 thou/uL (0.0-0.7); #Lymphocytes 4.4 thou/uL (1.20-3.40); #Monocytes 1.2 thou/uL (0.11-0.59); %Eosinophils 0.9 % (0.0-10.0); %Lymphocytes 40.3 % (21.0-51.0); %Monocytes 11.4 % (0.0-10.0); %Neutrophils 46.4 % (42.0-75.0); Hemoglobin 12.6 g/dL (12.0-16.0); Mean Corpuscular HGB CONC 34.7 g/dL (32.0-36.0); Mean Corpuscular Hemoglobin 31.3 pg (27.0-31.0); Mean Corpuscular Volume 90.2 fL (78.0-98.0); Platelet Count 645 thou/uL (130-400); RBC Distribution Width 17.5 % (11.5-14.5); Red Blood Cell (RBC) Count 4.03 mill/uL (4.20-5.40); White Blood Cell (WBC) Count 10.9 thou/uL (4.8-10.8)
[2020-11-08 21:50] LABS: BHCG - Serum Negative (NEGATIVE); Pregs Control Background? CLEAR/WHITE (CLR/WHITE); Pregs Control Bar Appear? YES (CONTROL BAR)
[2020-11-08 21:52] LABS: ALT (SGPT) 12 U/L (8-55); AST (SGOT) 30 U/L (5-34); Acetaminophen Less than 6.0 mcg/mL (10.0-30.0); Albumin 3.9 g/dL (3.5-5.0); Alcohol 273 mg/dL (Less than 10); Alkaline Phosphatase 171 U/L (40-110); Anion Gap 19 mmol/L (10-20); BUN (Urea Nitrogen) 9 mg/dL (9.8-20.1); Bilirubin, Total Less than 0.2 mg/dL (0.2-1.2); Calc. Creatinine Clearance 0 mL/min (70-130); Calcium 9.5 mg/dL (7.8-10.44); Carbon Dioxide 18 mmol/L (22-29); Chloride 103 mmol/L (98-107); Globulin 3.8 g/dL (2.4-3.5); Glucose 110 mg/dL (70-105); Potassium 3.8 mmol/L (3.5-5.1); Protein, Total 7.7 g/dL (6.0-8.3); Salicylate Less than 8.0 mg/dL (15.0-30.0); Sodium 136 mmol/L (136-145)
== END 2020-11-09 00:54 ==
LOC: ERS 21:20
DX: F10.129 Alcohol abuse with intoxication, unspecified (principal); V43.92XA Unspecified car occupant injured in collision with other type car in traffic accident, initial encounter; Y90.8 Blood alcohol level of 240 mg/100 ml or more; E03.9 Hypothyroidism, unspecified; I25.2 Old myocardial infarction; J45.909 Unspecified asthma, uncomplicated; Z72.0 Tobacco use
CPT/HCPCS: 36415; 70450; 71260; 72125; 74177; 80053; 80307; 84703; 85025; 86850; 86900; 86901; 93005; Q9967

== ENCOUNTER 2021-02-06 06:49 | Inpatient (IN) | payer MEDICARE, MEDICAID ==
[2021-02-06] MEDS ORDERED: Lorazepam 2 MG/ML VIAL IM PRN (11:00)
[2021-02-06] MEDS ORDERED: Electrolyte Replacement Protocol 1 EACH FS SCH (11:00)
[2021-02-06] MEDS ORDERED: Lorazepam 1 MG TAB PO PRN (11:00)
[2021-02-06] MEDS ORDERED: Ondansetron ODT 4 MG TAB PO PRN (11:00)
[2021-02-06 11:20] VITALS: BMI 23.4
[2021-02-06] MEDS ORDERED: Electrolyte Replacement Protocol FS PRN (11:45)
[2021-02-06] MEDS ORDERED: Folic Acid 1 MG TAB PO SCH (11:45)
[2021-02-06] MEDS ORDERED: Multivit, Therapeutic 1 TAB PO SCH (11:45)
[2021-02-06 11:47] LABS: #Lymphocytes 2.8 thou/uL (1.20-3.40); #Monocytes 0.7 thou/uL (0.11-0.59); #Neutrophils 4.5 thou/uL (1.40-6.50); %Basophils 0.6 % (0.0-1.0); %Eosinophils 0.2 % (0.0-10.0); %Lymphocytes 34.8 % (21.0-51.0); %Monocytes 8.3 % (0.0-10.0); %Neutrophils 56.1 % (42.0-75.0); Hemoglobin 11.9 g/dL (12.0-16.0); Mean Corpuscular HGB CONC 32.6 g/dL (32.0-36.0); Mean Corpuscular Hemoglobin 29.4 pg (27.0-31.0); Mean Corpuscular Volume 90.4 fL (78.0-98.0); Mean Platelet Volume 6.1 fL (7.4-10.4); Platelet Count 522 thou/uL (130-400); RBC Distribution Width 17.2 % (11.5-14.5); Red Blood Cell (RBC) Count 4.04 mill/uL (4.20-5.40)
[2021-02-06] MEDS ORDERED: Magnesium 2 GM/50 ML 2 GM in Premix Bag 1 BAG IVPB SCH (12:00)
[2021-02-06 12:07] LABS: ALT (SGPT) 13 U/L (8-55); AST (SGOT) 17 U/L (5-34); Albumin 3.7 g/dL (3.5-5.0); Alkaline Phosphatase 119 U/L (40-110); Anion Gap 13 mmol/L (10-20); BUN (Urea Nitrogen) 14 mg/dL (9.8-20.1); Bilirubin, Direct 0.2 mg/dL (0.1-0.3); Bilirubin, Total 0.4 mg/dL (0.2-1.2); Calc. Creatinine Clearance 97 mL/min (70-130); Calcium 9.1 mg/dL (7.8-10.44); Carbon Dioxide 24 mmol/L (22-29); Chloride 103 mmol/L (98-107); Globulin 3.1 g/dL (2.4-3.5); Glucose 103 mg/dL (70-105); Magnesium 1.9 mg/dL (1.6-2.6); Phosphorus 3.4 mg/dL (2.3-4.7); Potassium 3.8 mmol/L (3.5-5.1); Protein, Total 6.8 g/dL (6.0-8.3); Sodium 136 mmol/L (136-145)
[2021-02-06] MEDS: Lorazepam 1 MG TAB PO SCH ×3 (12:26→23:41)
[2021-02-06] MEDS: Sodium Chloride 0.9% 1,000 ML IV SCH (12:26)
[2021-02-06 12:32] LABS: Syphilis Antibody Nonreactive (Nonreactive); Syphilis Antibody Index 0.12 S/CO (<1.00 Non-Reactive)
[2021-02-06 13:00] LABS: SARS-CoV-2 NAA Rapid Test Not Detected (NotDetected)
[2021-02-06] MEDS: Thiamine HCl 200 MG/2 ML VIAL SLOW IVP SCH (13:04)
[2021-02-06] MEDS: Nicotine 14 MG PATCH TD SCH (13:05)
[2021-02-06] MEDS: Acetaminophen 325 MG TAB PO PRN (20:39)
[2021-02-07] MEDS ORDERED: Mirtazapine 15 MG TAB PO SCH ×2 (00:45→21:00)
[2021-02-07] MEDS: Sodium Chloride 0.9% 1,000 ML IV SCH ×3 (05:03→19:00)
[2021-02-07] MEDS: Lorazepam 1 MG TAB PO SCH ×4 (05:04→22:43)
[2021-02-07] MEDS: Levothyroxine Sodium 75 MCG TAB PO SCH (05:04)
[2021-02-07 06:18] LABS: Anion Gap 10 mmol/L (10-20); BUN (Urea Nitrogen) 12 mg/dL (9.8-20.1); Calc. Creatinine Clearance 91 mL/min (70-130); Calcium 8.9 mg/dL (7.8-10.44); Carbon Dioxide 25 mmol/L (22-29); Chloride 106 mmol/L (98-107); Glucose 84 mg/dL (70-105); Magnesium 2.1 mg/dL (1.6-2.6); Potassium 3.8 mmol/L (3.5-5.1); Sodium 137 mmol/L (136-145)
[2021-02-07 07:15] LABS: Hemoglobin 11.1 g/dL (12.0-16.0); Mean Corpuscular HGB CONC 33.7 g/dL (32.0-36.0); Mean Corpuscular Volume 88.9 fL (78.0-98.0); Red Blood Cell (RBC) Count 3.69 mill/uL (4.20-5.40); White Blood Cell (WBC) Count 6.1 thou/uL (4.8-10.8)
[2021-02-07 07:49] LABS: Eosinophils 2 % (0-10); Lymphocytes 49 % (21-51); MDiff Complete? YES; Mean Platelet Volume 6.1 fL (7.4-10.4); Monocytes 9 % (0-10); Neutrophil 40 % (42-75); Platelet Count 404 thou/uL (130-400); Platelet Morphology Comment Appears Increased; RBC Distribution Width 16.5 % (11.5-14.5)
[2021-02-07] MEDS: Multivit, Therapeutic 1 TAB PO SCH (09:36)
[2021-02-07] MEDS: Folic Acid 1 MG TAB PO SCH (09:36)
[2021-02-07] MEDS: FLUoxetine HCl 20 MG CAP PO SCH (09:36)
[2021-02-07] MEDS: busPIRone HCl 10 MG TAB PO SCH ×3 (09:36→20:21)
[2021-02-07] MEDS ORDERED: Lorazepam 1 MG TAB PO PRN (11:00)
[2021-02-07] MEDS: Nicotine 14 MG PATCH TD SCH (11:27)
[2021-02-07] MEDS: Thiamine HCl 200 MG/2 ML VIAL SLOW IVP SCH (11:27)
[2021-02-07] MEDS: Acetaminophen 325 MG TAB PO PRN ×2 (11:58→17:32)
[2021-02-07] MEDS ORDERED: risperiDONE 1 MG TAB PO SCH (21:00)
[2021-02-08] MEDS: Levothyroxine Sodium 75 MCG TAB PO SCH (05:40)
[2021-02-08] MEDS: Lorazepam 1 MG TAB PO SCH ×2 (05:40→10:59)
[2021-02-08] MEDS: Multivit, Therapeutic 1 TAB PO SCH (09:17)
[2021-02-08] MEDS: Folic Acid 1 MG TAB PO SCH (09:17)
[2021-02-08] MEDS: FLUoxetine HCl 20 MG CAP PO SCH (09:17)
[2021-02-08] MEDS: busPIRone HCl 10 MG TAB PO SCH ×2 (09:17→15:46)
[2021-02-08] MEDS: Acetaminophen 325 MG TAB PO PRN (09:17)
[2021-02-08] MEDS ORDERED: Lorazepam 1 MG TAB PO PRN (11:00)
[2021-02-08] MEDS: Nicotine 14 MG PATCH TD SCH (11:00)
[2021-02-08] MEDS: Thiamine HCl 200 MG/2 ML VIAL SLOW IVP SCH (11:00)
[2021-02-08] MEDS ORDERED: Lorazepam 0.5 MG TAB PO SCH (11:00)
[2021-02-08 16:18] VITALS: BP 153/85; TEMP 99.4
[2021-02-09] MEDS ORDERED: Lorazepam 0.5 MG TAB PO PRN (11:00)
[2021-02-09] MEDS ORDERED: Thiamine 100 MG TAB PO SCH (12:00)
== END 2021-02-08 16:06 | disposition home or self-care (01) | DRG 897 ==
LOC: 2NO 09:35
PROVIDERS: ADMIT Student in an Organized Health Care Education/Training Program; ATTEND Family Medicine
PROC: HZ2ZZZZ Detoxification Services for Substance Abuse Treatment (ICD-10-PCS; principal; 2021-02-06)
DX: F10.229 Alcohol dependence with intoxication, unspecified (principal); Z20.822 Contact with and (suspected) exposure to COVID-19; F10.239 Alcohol dependence with withdrawal, unspecified; J44.9 Chronic obstructive pulmonary disease, unspecified; E03.9 Hypothyroidism, unspecified; B18.2 Chronic viral hepatitis C; F31.9 Bipolar disorder, unspecified; F43.10 Post-traumatic stress disorder, unspecified; K21.9 Gastro-esophageal reflux disease without esophagitis; F12.10 Cannabis abuse, uncomplicated; Z90.49 Acquired absence of other specified parts of digestive tract; Z88.0 Allergy status to penicillin; Z79.890 Hormone replacement therapy; Z79.899 Other long term (current) drug therapy
CPT/HCPCS: 36415; 80048; 82248; 83735; 84100; 85025; 86780; J3411; J3475; J7050; Q0162; U0002

== ENCOUNTER 2021-02-08 20:28 | Emergency (ER) | payer MEDICARE, MEDICAID ==
[2021-02-08 21:30] LABS: #Eosinphils 0.2 thou/uL (0.0-0.7); #Lymphocytes 3.1 thou/uL (1.20-3.40); #Monocytes 0.8 thou/uL (0.11-0.59); %Basophils 0.3 % (0.0-1.0); %Eosinophils 1.2 % (0.0-10.0); %Monocytes 5.8 % (0.0-10.0); %Neutrophils 70.7 % (42.0-75.0); Hemoglobin 12.3 g/dL (12.0-16.0); Mean Corpuscular Hemoglobin 29.9 pg (27.0-31.0); Mean Platelet Volume 6.2 fL (7.4-10.4); Platelet Count 457 thou/uL (130-400); RBC Distribution Width 16.7 % (11.5-14.5); Red Blood Cell (RBC) Count 4.12 mill/uL (4.20-5.40); White Blood Cell (WBC) Count 14.2 thou/uL (4.8-10.8)
[2021-02-08 21:45] LABS: Bacteria/HPF None Seen HPF (None Seen); Bilirubin Negative (Negative); Blood, Urine Negative (Negative); Clarity Clear (Clear); Glucose, Urine (Dipstick) Normal (Negative); Ketone, Urine Negative (Negative); Leukocyte 250 Leu/uL (Negative); Nitrite Negative (Negative); Pregnancy Test - Urine (BHCG) Negative (Negative); Pregu Control Bar Appear? YES (CONTROL BAR); Protein, Urine (Dipstick) Negative (Neg-Trace); RBC/HPF 0-3 HPF (0-3); Renal Epithelial 0-3 HPF (None Seen); Specific Gravity 1.003 (1.002-1.036); Specific Gravity, Urine 1.003 (1.002-1.036); Squamous Epithelial 0-3 HPF (0-3); Urobilinogen Normal mg/dL (Less than 2); WBC/HPF 0-3 HPF (0-3)
[2021-02-08 21:46] LABS: Pregu Control Background? CLEAR/WHITE (CLR/WHITE)
[2021-02-08 21:52] LABS: Amphetamine Not Detected (NotDetected); Barbiturates Screen Not Detected (NotDetected); Benzodiazepine Screen Detected (NotDetected); Cocaine Metabolite Screen Not Detected (NotDetected); Methadone Not Detected (NotDetected); Methamphetamine Not Detected (NotDetected); Opiate Screen Not Detected (NotDetected); Oxycodone Screen Not Detected (NotDetected); Phencyclidine (PCP) Not Detected (NotDetected); THC/Cannabinoid Screen Not Detected (NotDetected); Tricyclic Screen Not Detected (NotDetected)
[2021-02-08 21:54] LABS: BHCG - Serum Negative (NEGATIVE); Pregs Control Background? CLEAR/WHITE (CLR/WHITE); Pregs Control Bar Appear? YES (CONTROL BAR)
[2021-02-08 21:56] LABS: Acetaminophen Less than 6.0 mcg/mL (10.0-30.0); Alcohol 270 mg/dL (Less than 10); Salicylate Less than 8.0 mg/dL (15.0-30.0)
[2021-02-08 23:16] LABS: Chloride 103 mmol/L (98-107); Potassium 5.7 mmol/L (3.5-5.1); Sodium 138 mmol/L (136-145)
[2021-02-08 23:17] LABS: Glucose 89 mg/dL (70-105)
[2021-02-08 23:18] LABS: Anion Gap 23 mmol/L (10-20); Carbon Dioxide 18 mmol/L (22-29)
[2021-02-08 23:19] LABS: Bilirubin, Total Less than 0.2 mg/dL (0.2-1.2)
[2021-02-08 23:20] LABS: Alkaline Phosphatase 102 U/L (40-110); Calc. Creatinine Clearance 0 mL/min (70-130)
[2021-02-08 23:21] LABS: BUN (Urea Nitrogen) 14 mg/dL (9.8-20.1)
[2021-02-08 23:22] LABS: AST (SGOT) 53 U/L (5-34)
[2021-02-08 23:23] LABS: ALT (SGPT) 20 U/L (8-55)
== END 2021-02-09 05:32 | disposition home or self-care (01) ==
LOC: ERS 20:28
DX: F10.129 Alcohol abuse with intoxication, unspecified (principal); I25.2 Old myocardial infarction; E03.9 Hypothyroidism, unspecified; J45.909 Unspecified asthma, uncomplicated; F17.210 Nicotine dependence, cigarettes, uncomplicated; Z79.899 Other long term (current) drug therapy
CPT/HCPCS: 36415; 80053; 80306; 80307; 81003; 81015; 81025; 83690; 84703; 85025; 93005

== ENCOUNTER 2021-02-11 20:17 | Emergency (ER) | payer MEDICARE, MEDICAID ==
[2021-02-11 21:01] LABS: #Basophils 0.1 thou/uL (0.0-0.2); #Eosinphils 0.7 thou/uL (0.0-0.7); #Lymphocytes 2.4 thou/uL (1.20-3.40); #Monocytes 0.8 thou/uL (0.11-0.59); #Neutrophils 5.6 thou/uL (1.40-6.50); %Basophils 0.6 % (0.0-1.0); %Eosinophils 7.6 % (0.0-10.0); %Lymphocytes 24.8 % (21.0-51.0); %Monocytes 8.1 % (0.0-10.0); %Neutrophils 58.9 % (42.0-75.0); Hemoglobin 13.2 g/dL (12.0-16.0); Mean Corpuscular HGB CONC 33.8 g/dL (32.0-36.0); Mean Corpuscular Hemoglobin 30.2 pg (27.0-31.0); Mean Corpuscular Volume 89.5 fL (78.0-98.0); Mean Platelet Volume 5.9 fL (7.4-10.4); Platelet Count 430 thou/uL (130-400); Red Blood Cell (RBC) Count 4.36 mill/uL (4.20-5.40); White Blood Cell (WBC) Count 9.5 thou/uL (4.8-10.8)
[2021-02-11 21:26] LABS: Acetaminophen Less than 6.0 mcg/mL (10.0-30.0); Alcohol 212 mg/dL (Less than 10); Salicylate Less than 8.0 mg/dL (15.0-30.0)
[2021-02-11 22:06] LABS: Albumin 3.4 g/dL (3.5-5.0)
[2021-02-11 22:07] LABS: Chloride 107 mmol/L (98-107); Potassium 3.7 mmol/L (3.5-5.1); Sodium 140 mmol/L (136-145)
[2021-02-11 22:08] LABS: Calcium 8.2 mg/dL (7.8-10.44); Glucose 66 mg/dL (70-105)
[2021-02-11 22:09] LABS: Globulin 2.9 g/dL (2.4-3.5); Protein, Total 6.3 g/dL (6.0-8.3)
[2021-02-11 22:10] LABS: Anion Gap 14 mmol/L (10-20); Bilirubin, Total Less than 0.2 mg/dL (0.2-1.2); Carbon Dioxide 23 mmol/L (22-29)
[2021-02-11 22:11] LABS: Alkaline Phosphatase 96 U/L (40-110)
[2021-02-11 22:12] LABS: Calc. Creatinine Clearance 0 mL/min (70-130)
[2021-02-11 22:13] LABS: BUN (Urea Nitrogen) 7 mg/dL (9.8-20.1)
[2021-02-11 22:14] LABS: ALT (SGPT) 10 U/L (8-55); AST (SGOT) 13 U/L (5-34)
== END 2021-02-12 07:13 | disposition home or self-care (01) ==
LOC: ERS 20:17
DX: F10.129 Alcohol abuse with intoxication, unspecified (principal); R00.0 Tachycardia, unspecified; E03.9 Hypothyroidism, unspecified; J45.909 Unspecified asthma, uncomplicated; I25.2 Old myocardial infarction; F17.210 Nicotine dependence, cigarettes, uncomplicated; Z87.19 Personal history of other diseases of the digestive system; Z79.899 Other long term (current) drug therapy
CPT/HCPCS: 36415; 80053; 80307; 85025; 93005

== ENCOUNTER 2021-10-12 16:02 | Inpatient (IN) | payer MEDICARE, MEDICAID ==
[2021-10-12] MEDS ORDERED: Folic Acid 1 MG TAB ONE (16:35)
[2021-10-12] MEDS ORDERED: Lorazepam (BATCHED) 2 MG/ML SYR ONE (16:35)
[2021-10-12] MEDS ORDERED: Thiamine 100 MG TAB ONE (16:35)
[2021-10-12 16:54] LABS: #Basophils 0.1 thou/uL (0.0-0.2); #Lymphocytes 1.2 thou/uL (1.20-3.40); #Monocytes 0.3 thou/uL (0.11-0.59); %Basophils 0.6 % (0.0-1.0); %Eosinophils 0.1 % (0.0-10.0); %Lymphocytes 12.3 % (21.0-51.0); %Monocytes 3.5 % (0.0-10.0); %Neutrophils 83.4 % (42.0-75.0); Hemoglobin 14.6 g/dL (12.0-16.0); Mean Corpuscular HGB CONC 33.8 g/dL (32.0-36.0); Mean Corpuscular Hemoglobin 28.7 pg (27.0-31.0); Mean Corpuscular Volume 84.8 fL (78.0-98.0); Mean Platelet Volume 6.2 fL (7.4-10.4); Platelet Count 373 thou/uL (130-400); RBC Distribution Width 14.4 % (11.5-14.5); Red Blood Cell (RBC) Count 5.08 mill/uL (4.20-5.40); White Blood Cell (WBC) Count 9.6 thou/uL (4.8-10.8)
[2021-10-12 17:14] LABS: Acetaminophen Less than 10.0 mcg/mL (10.0-30.0); Alcohol 191 mg/dL (Less than 10); Lipase 31 U/L (8-78); Magnesium 1.6 mg/dL (1.6-2.6); Salicylate Less than 8.0 mg/dL (15.0-30.0)
[2021-10-12 17:28] LABS: Albumin 4.3 g/dL (3.5-5.0)
[2021-10-12 17:29] LABS: Chloride 90 mmol/L (98-107); Potassium 3.8 mmol/L (3.5-5.1); Sodium 128 mmol/L (136-145)
[2021-10-12 17:30] LABS: Calcium 9.5 mg/dL (7.8-10.44); Glucose 104 mg/dL (70-105)
[2021-10-12 17:31] LABS: Globulin 3.1 g/dL (2.4-3.5); Protein, Total 7.4 g/dL (6.0-8.3)
[2021-10-12 17:32] LABS: Anion Gap 23 mmol/L (10-20); Bilirubin, Total 0.4 mg/dL (0.2-1.2); Carbon Dioxide 19 mmol/L (22-29)
[2021-10-12 17:33] LABS: Alkaline Phosphatase 137 U/L (40-110)
[2021-10-12 17:34] LABS: BUN (Urea Nitrogen) 8 mg/dL (9.8-20.1); Calc. Creatinine Clearance 0 mL/min (70-130); Estimated GFR 106
[2021-10-12 17:35] LABS: AST (SGOT) 44 U/L (5-34)
[2021-10-12 17:36] LABS: ALT (SGPT) 39 U/L (8-55)
[2021-10-12] MEDS ORDERED: Thiamine HCl 200 MG/2 ML VIAL IM SCH (17:45)
[2021-10-12] MEDS ORDERED: Multivit, Therapeutic 1 TAB PO SCH (17:45)
[2021-10-12] MEDS ORDERED: chlordiazePOXIDE HCl 25 MG CAP PO SCH (18:30)
[2021-10-12 18:51] LABS: Bilirubin Negative (Negative); Blood, Urine Negative (Negative); Clarity Clear (Clear); Glucose, Urine (Dipstick) Normal (Negative); Ketone, Urine 40 mg/dL (Negative); Leukocyte Negative Leu/uL (Negative); Nitrite Negative (Negative); Protein, Urine (Dipstick) 20 mg/dL (Neg-Trace); Specific Gravity, Urine 1.023 (1.002-1.036); Urobilinogen Normal mg/dL (Less than 2)
[2021-10-12 18:59] LABS: Amphetamine Detected (NotDetected); Barbiturates Screen Not Detected (NotDetected); Benzodiazepine Screen Not Detected (NotDetected); Cocaine Metabolite Screen Not Detected (NotDetected); Methadone Not Detected (NotDetected); Methamphetamine Detected (NotDetected); Opiate Screen Not Detected (NotDetected); Oxycodone Screen Not Detected (NotDetected); Phencyclidine (PCP) Not Detected (NotDetected); THC/Cannabinoid Screen Not Detected (NotDetected); Tricyclic Screen Not Detected (NotDetected)
[2021-10-12 19:00] LABS: Phosphorus 3.2 mg/dL (2.3-4.7)
[2021-10-12] MEDS ORDERED: Lorazepam 2 MG/ML VIAL IM PRN (19:52)
[2021-10-12] MEDS ORDERED: Lorazepam 1 MG TAB PO PRN (19:52)
[2021-10-12] MEDS ORDERED: Electrolyte Replacement Protocol 1 EACH FS SCH (20:00)
[2021-10-12 20:09] LABS: Free T4 (Free Thyroxine) 0.88 ng/dL (0.70-1.48); Thyroid Stimulating Hormone 1.4769 uIU/mL (0.35-4.94)
[2021-10-12] MEDS ORDERED: Magnesium 2 GM/50 ML(in water) 2 GM in Premix Bag 1 BAG IVPB SCH (20:15)
[2021-10-12 21:37] VITALS: BMI 24.4
[2021-10-12] MEDS: Lorazepam 1 MG TAB PO SCH (22:14)
[2021-10-12] MEDS: Famotidine 20 MG TAB PO SCH (22:14)
[2021-10-12] MEDS: Nicotine 21 MG PATCH TD SCH (22:14)
[2021-10-12 22:39] LABS: PTT 26.3 sec (22.9-36.1); Prothrombin Time 13.6 sec (12.0-14.7)
[2021-10-12 22:58] LABS: HBCM Index 0.07 S/CO (0-0.79); HBSAg Index 0.29 S/CO (0-0.99); Hep A IgM AB Non-Reactive (NonReactive); Hep A IgM S/CO 0.15 S/CO (0-0.79); Hep B Surf Ag Non-Reactive S/CO (NonReactive); Hep C IgG Ab Non-Reactive (NonReactive); Hep C Index 0.07 S/CO (0-0.79); Hepatitis B Core IgM Abs Non-Reactive (NonReactive)
[2021-10-12] MEDS: Lactated Ringer's 1,000 ML IV SCH (23:20)
[2021-10-13 00:23] LABS: HIV (1/2) Antibody/Antigen Non-Reactive (NonReactive); HIV 1/2 INDEX 0.25 S/CO (<1.00)
[2021-10-13] MEDS: Lorazepam 1 MG TAB PO SCH ×2 (02:00→09:17)
[2021-10-13 05:43] LABS: Anion Gap 14 mmol/L (10-20); BUN (Urea Nitrogen) 7 mg/dL (9.8-20.1); Calc. Creatinine Clearance 103 mL/min (70-130); Carbon Dioxide 25 mmol/L (22-29); Chloride 98 mmol/L (98-107); Estimated GFR 108; Glucose 76 mg/dL (70-105); Magnesium 2.2 mg/dL (1.6-2.6); Phosphorus 3.9 mg/dL (2.3-4.7); Potassium 3.7 mmol/L (3.5-5.1); Sodium 133 mmol/L (136-145)
[2021-10-13] MEDS ORDERED: hydrALAZINE 20 MG/ML VIAL SLOW IVP PRN (06:18)
[2021-10-13 09:04] LABS: ALT (SGPT) 38 U/L (8-55); AST (SGOT) 48 U/L (5-34); Albumin 3.7 g/dL (3.5-5.0); Alkaline Phosphatase 119 U/L (40-110); Bilirubin, Direct 0.3 mg/dL (0.1-0.3); Bilirubin, Total 0.6 mg/dL (0.2-1.2); Protein, Total 6.4 g/dL (6.0-8.3)
[2021-10-13] MEDS: Famotidine 20 MG TAB PO SCH ×2 (09:16→20:25)
[2021-10-13] MEDS: Folic Acid 1 MG TAB PO SCH (09:16)
[2021-10-13] MEDS: Multivit, Therapeutic 1 TAB PO SCH (09:16)
[2021-10-13] MEDS: busPIRone HCl 10 MG TAB PO SCH ×3 (09:16→20:25)
[2021-10-13] MEDS: Lactated Ringer's 1,000 ML IV SCH (09:17)
[2021-10-13] MEDS ORDERED: chlordiazePOXIDE HCl 25 MG CAP PO SCH ×2 (10:45→16:30)
[2021-10-13 10:59] LABS: Syphilis Antibody Nonreactive (Nonreactive); Syphilis Antibody Index 0.03 S/CO (<1.00 Non-Reactive)
[2021-10-13] MEDS: Lidocaine 5% Patch TD SCH (11:11)
[2021-10-13] MEDS: Acetaminophen 325 MG TAB PO PRN ×2 (12:42→20:29)
[2021-10-13] MEDS: chlordiazePOXIDE HCl 25 MG CAP PO SCH ×2 (17:54→23:38)
[2021-10-13] MEDS ORDERED: Thiamine HCl 200 MG/2 ML VIAL SLOW IVP SCH (20:00)
[2021-10-13] MEDS: Nicotine 21 MG PATCH TD SCH (20:25)
[2021-10-13] MEDS: Lorazepam 1 MG TAB PO PRN (20:26)
[2021-10-13] MEDS ORDERED: Transdermal Patch Removal TOP SCH (22:00)
[2021-10-14] MEDS: Lorazepam 1 MG TAB PO PRN ×2 (00:52→10:14)
[2021-10-14] MEDS: chlordiazePOXIDE HCl 25 MG CAP PO SCH (05:40)
[2021-10-14 07:00] LABS: ALT (SGPT) 27 U/L (8-55); AST (SGOT) 26 U/L (5-34); Albumin 2.6 g/dL (3.5-5.0); Alkaline Phosphatase 134 U/L (40-110); Anion Gap 10 mmol/L (10-20); BUN (Urea Nitrogen) 10 mg/dL (9.8-20.1); Bilirubin, Total 0.6 mg/dL (0.2-1.2); Calc. Creatinine Clearance 79 mL/min (70-130); Carbon Dioxide 19 mmol/L (22-29); Chloride 110 mmol/L (98-107); Estimated GFR 89; Globulin 3.1 g/dL (2.4-3.5); Glucose 102 mg/dL (70-105); Magnesium 2.1 mg/dL (1.6-2.6); Phosphorus 1.2 mg/dL (2.3-4.7); Potassium 3.1 mmol/L (3.5-5.1); Protein, Total 5.7 g/dL (6.0-8.3); Sodium 136 mmol/L (136-145)
[2021-10-14] MEDS ORDERED: Potassium Chloride 20 MEQ TAB PO SCH ×2 (08:00→08:45)
[2021-10-14] MEDS ORDERED: PHOS-NAK 1 PKT PACK PO SCH (08:45)
[2021-10-14] MEDS: Folic Acid 1 MG TAB PO SCH (09:16)
[2021-10-14] MEDS: Lidocaine 5% Patch TD SCH (09:16)
[2021-10-14] MEDS: busPIRone HCl 10 MG TAB PO SCH ×2 (09:16→14:09)
[2021-10-14] MEDS: Famotidine 20 MG TAB PO SCH (09:17)
[2021-10-14] MEDS: Multivit, Therapeutic 1 TAB PO SCH (09:17)
[2021-10-14] MEDS: PHOS-NAK 1 PKT PACK PO SCH ×3 (09:20→16:00)
[2021-10-14] MEDS ORDERED: Promethazine 25 MG TAB PO SCH (10:00)
[2021-10-14] MEDS ORDERED: chlordiazePOXIDE HCl 25 MG CAP PO SCH ×2 (12:00→14:00)
[2021-10-14 16:09] VITALS: BP 115/63; TEMP 98.1
[2021-10-14] MEDS ORDERED: Lorazepam 1 MG TAB PO PRN (19:52)
[2021-10-14] MEDS ORDERED: Lorazepam 0.5 MG TAB PO SCH (20:00)
[2021-10-15] MEDS ORDERED: chlordiazePOXIDE HCl 25 MG CAP PO SCH (09:00)
[2021-10-15] MEDS ORDERED: Lorazepam 0.5 MG TAB PO PRN (19:52)
[2021-10-15] MEDS ORDERED: Thiamine 100 MG TAB PO SCH (21:00)
[2021-10-16] MEDS ORDERED: chlordiazePOXIDE HCl 25 MG CAP PO SCH (09:00)
== END 2021-10-14 16:43 | disposition short-term general hospital (02) | DRG 897 ==
LOC: EEVIPCON 16:02 → ERS 16:02 → OBSVTOIN 18:09 → 2NO 18:09
PROVIDERS: ADMIT Student in an Organized Health Care Education/Training Program; ATTEND Family Medicine
DX: F10.231 Alcohol dependence with withdrawal delirium (principal); E87.1 Hypo-osmolality and hyponatremia; K86.0 Alcohol-induced chronic pancreatitis; R45.851 Suicidal ideations; Y90.6 Blood alcohol level of 120-199 mg/100 ml; Z51.5 Encounter for palliative care; Z20.822 Contact with and (suspected) exposure to COVID-19; F17.210 Nicotine dependence, cigarettes, uncomplicated; R94.31 Abnormal electrocardiogram [ECG] [EKG]; E03.9 Hypothyroidism, unspecified; J45.909 Unspecified asthma, uncomplicated; F31.9 Bipolar disorder, unspecified; F43.10 Post-traumatic stress disorder, unspecified; F10.229 Alcohol dependence with intoxication, unspecified; E87.6 Hypokalemia; E83.39 Other disorders of phosphorus metabolism; G89.29 Other chronic pain; M54.50 Low back pain, unspecified; Z88.0 Allergy status to penicillin; Z79.899 Other long term (current) drug therapy; I25.2 Old myocardial infarction; Z90.49 Acquired absence of other specified parts of digestive tract
CPT/HCPCS: 36415; 71046; 76705; 80048; 80053; 80074; 80076; 80306; 80307; 81003; 83690; 83735; 84100; 84439; 84443; 84481; 85025; 85610; 85730; 86780; 87389; 93005; 93010; 94760; 96372; 96374; J2060; J3411; J3475; J7120; Q0169; U0003; U0005

== ENCOUNTER 2023-08-05 11:52 | Emergency (ER) | payer MEDICARE, MEDICAID ==
[2023-08-05 14:46] LABS: #Basophils 0.04 10x3/uL (0.0-0.2); %Basophils 0.5 % (0.0-1.0); %Eosinophils 1.4 % (0.0-10.0); %Lymphocytes 42.4 % (21.0-51.0); %Monocytes 5.5 % (0.0-10.0); %Neutrophils 50.1 % (42.0-75.0); Hematocrit 47.2 % (36.0-47.0); Hemoglobin 15.6 g/dL (12.0-16.0); Mean Corpuscular HGB CONC 33.1 g/dL (32.0-36.0); Mean Corpuscular Hemoglobin 28.7 pg (27.0-31.0); Mean Corpuscular Volume 86.9 fL (78.0-98.0); Mean Platelet Volume 8.1 fL (7.4-10.4); Platelet Count 295 10x3/uL (130-400); RBC Distribution Width 16.6 % (11.5-14.5); Red Blood Cell (RBC) Count 5.43 mill/uL (4.20-5.40)
[2023-08-05 15:15] LABS: Alcohol 265.5 mg/dL (Less than 10)
[2023-08-05 15:18] LABS: ALT (SGPT) 20 U/L (8-55); AST (SGOT) 34 U/L (5-34); Albumin 3.9 g/dL (3.5-5.0); Alkaline Phosphatase 119 U/L (40-110); Anion Gap 19 mmol/L (10-20); BUN (Urea Nitrogen) 10 mg/dL (9.8-20.1); Bilirubin, Total 0.3 mg/dL (0.2-1.2); Calc. Creatinine Clearance 0 mL/min (70-130); Calcium 8.4 mg/dL (7.8-10.44); Carbon Dioxide 20 mmol/L (22-29); Chloride 105 mmol/L (98-107); Estimated GFR 98; Globulin 3.4 g/dL (2.4-3.5); Glucose 77 mg/dL (70-105); Potassium 3.9 mmol/L (3.5-5.1); Protein, Total 7.3 g/dL (6.0-8.3); Sodium 140 mmol/L (136-145)
[2023-08-05] MEDS ORDERED: Ondansetron PF 4 MG/2 ML Vial ONE (19:24)
== END 2023-08-05 23:29 | disposition home or self-care (01) ==
LOC: ERS 11:52
DX: F10.129 Alcohol abuse with intoxication, unspecified (principal); F17.210 Nicotine dependence, cigarettes, uncomplicated; Y90.8 Blood alcohol level of 240 mg/100 ml or more
CPT/HCPCS: 36415; 80053; 80307; 85025; 93005; 96374; J2405